=== PATIENT | female | born 1985 | race Caucasian/White ===

== ENCOUNTER 2020-01-09 08:12 | Emergency (ER) | payer OTHER, SELFPAY ==
[2020-01-09 08:17] VITALS: BP 115/80; PULSE 105; RESP 16; TEMP 36.8; O2SAT 100; BMI 19.5
--- NOTE | 2020-01-09 08:31 | CT_ITS ---
WS: [id number] CT NECK TECHNIQUE: Noncontrast CT of the neck with coronal and sagittal reformatted images. CLINICAL INFORMATION: neck pain COMPARISON: None. DLP: 620.[address] scans at [facility] use at least one of these dose optimization techniques: automat ed exposure control; mA and/or kV adjustment per patient size (includes targeted exams where dose is matched to clinical indication); or iterative reconstruction. FINDINGS: Parotid glands are normal. Normal submandibular glands. No cervical lymphadenopathy. Normal posterior nasopharynx. Normal parapharyngeal fat. No cervical lymphadenopathy. Mastoid air cells are well aera pauline. Paranasal sinuses are well aerated. Lung apices are well aerated. Paranasal sinuses and mastoid air cells are well aerated. Normal visual ized cervical spine. Normal craniocervical junction. No acute neck findings. CT/CT neck wo con [id number] IMPRESSION: 1. No evidence of supraglottic or glottic mass. Subglottic airway is patent. 2. Normal salivary glands. 3. No cervical lymphadenopathy. 4. No acute neck findings.
--- NOTE | 2020-01-09 08:33 | W.ED.GENADLT ---
HPI - General Adult General: Chief complaint: Airway/Esophagus Foreign Body Stated complaint: FEELS LIKE SOMETHING IS STUCK IN THROAT Time Seen by Provider: 01/09/20 08:19 History of Present Illness: HPI narrative: Patient states that she feels like she has something stuck in her throat been going for approximately 2 weeks. She was seen at [facility] walk-in clinic to give her lidocaine which she was able get filled yesterday and it did not help with the symptoms she is having. She denies any drooling she is able swallow food and eat but she complains about increasing pain down the lower part of her throat. Denies any reflux heartburn. Denies any fever chills. MD complaint: Throat pain Onset (ago): week(s) Radiation: non-radiation Severity scale (1-10): 5 Quality: burning, aching and constant Pain Consistency: constant Relieving factors: none Associated symptoms: Reports no associated symptoms; Deny chest pain, dyspnea, headache(s), nausea, rash or vomiting Treatments prior to arrival: other (Lidocaine viscus) Review of Systems Const: Denies: fever(s), chills or body aches Eyes: Denies: change in vision or blurry vision ENMT: Reports: throat pain and odynophagia; Denies: uvular edema, enlarged tonsils, hoarseness, swelling of lips/tongue, nasal discharge or nasal congestion Card: Denies: chest pain or dyspnea on exertion Resp: Denies: dyspnea, productive cough or non-productive cough GI: Denies: abdominal pain, nausea, vomiting or heartburn Musc: Denies: extremity pain Skin/Breast: Denies: rash Neuro: Denies: headache(s) Psych: Denies: anxiety or depression Giancarlo/Lymph: Denies: easy bruising PFSH ED PFSH: Medical History (Updated 08/10/19 @ 16:19 by Leo Abernathy MD) Migraine Without aura Surgical History (Updated 08/10/19 @ 15:39 by Leo Abernathy MD) History of bilateral tubal ligation (04/09/13) . Performed by Dr. Lan at [facility] [place]. History of laparoscopic cholecystectomy (~08/2010) History of laparoscopy (03/12/12) Dx: Pelvic pain. Performed by Dr. Latif at [facility] History of LAVH (12/10/14) With bilateral salpingectomy. Dx: Chronic pelvic pain, Irregular bleeding, Dysmenorrhea. Path negative. History of tonsillectomy and adenoidectomy (~2003) Age 18 Family History (Updated 08/07/19 @ 14:31 by Tyra Pérez LPN) Grandfather Heart disease Social History Smoking and tobacco status: never smoked Alcohol intake: current Alcohol intake frequency: few times a month Physical Exam Const: COMMON NORMALS: no acute distress, average body habitus and patient oriented x3 HENMT: COMMON NORMALS: normocephalic HEAD & SCALP: normal to inspection and normocephalic FACE & SINUS: normal facial exam THROAT: posterior oropharynx abnormal erythema and other (Thyroid feels normal); no uvular edema Eye: COMMON NORMALS: conjunctivae normal GENERAL EYE: appearance normal, both eyes and all related structures CONJUNCTIVA: Yes conjunctivae normal Neck/C-Spine: COMMON NORMALS: no JVD Chest: COMMONS NORMALS: normal inspection of the chest Resp: COMMON NORMALS: normal respiratory effort and clear to auscultation bilaterally AUSCULTATION: clear to auscultation bilaterally Cardio: COMMON NORMALS: no JVD, regular rate and regular rhythm RATE: regular rate RHYTHM: regular rhythm GI: COMMON NORMALS: Normal to inspection, nondistended, normoactive bowel sounds present Extremity: COMMON NORMALS: normal to inspection and full ROM Neuro: COMMON NORMALS: patient oriented x3 Course Vital Signs: Vital signs: Vital Signs Temperature 98.2 F 01/09/20 08:17 Pulse Rate 105 H 01/09/20 08:17 Respiratory Rate 16 01/09/20 08:17 Blood Pressure 115/80 01/09/20 08:17 Pulse Oximetry 100 01/09/20 08:17 Discharge Plan Discharge Prescriptions: No Action Aimovig Autoinjector 140 mg/mL auto-injector SUBCUT PRNRF: 0 topiramate 25 mg capsule, sprinkle 100 mg PO DAILY RF: 0 Coding Level of Care Code ED Religious Education Coordinator for Curlyg José Miguel
--- NOTE | 2020-01-09 08:34 | PC.NURSE ---
Assessment Patient states she began feeling as if something is lodged in her throat approximately 2 weeks ago. Seen PCP Sunday due to the discomfort, was prescribed her lidocaine viscous. Discomfort turned into pain 2 days ago and PCP instructed patient to be further evaluated in ED considering medication was not alleviating pain. Patient denies any symptoms or difficulty handling secretions or breathing.
[2020-01-09] MEDS: lidocaine 2% viscous 15 ML, aluminum-mag hydrox-simethicon 30 ML, sucralfate oral liq 1 GM PO (08:41)
[2020-01-09 09:10] LABS: Basophils % 0.7 %; Eosinophils # 0.1 10^3/uL (0.0-0.8); Eosinophils % 2.8 %; Lymphocytes # 1.6 10^3/uL (0.8-4.8); Lymphocytes % 37.8 %; Mean Corpuscular HGB Conc 33.3 g/dL (30.0-36.0); Mean Corpuscular Hemoglobin 29.9 pg (28.0-34.0); Mean Corpuscular Volume 89.8 fL (81-99); Mean Platelet Volume 10.6 fL (7.4-10.4); Monocytes # 0.4 10^3/uL (0.2-0.9); Monocytes % 8.7 %; Neutrophils % 49.8 %; Nucleated Red Blood Cells % 0 %; Platelet Count 232 10^3/cmm (130-400); Red Blood Count 5.01 10^6/uL (4.1-5.3); Red Cell Distribution Width 12.1 % (12.1-15.1); White Blood Count 4.2 10^3/uL (4.0-10.0)
[2020-01-09 09:35] LABS: Blood Urea Nitrogen 10 mg/dL (6-20); Carbon Dioxide 24 mmol/L (22-29); Chloride 105 mmol/L (98-107); Glomerular Filtration Rate 83.1 mL/min (90-130); Glucose 87 mg/dL (65-115); Osmolality Calculated 285 mOsm/kg (285-295); Sodium 140 mmol/L (136-145); Thyroid Stimulating Hormone 1.29 uIU/mL (0.27-4.20)
[2020-01-09 10:22] VITALS: BP 111/82; PULSE 85; RESP 16; O2SAT 99
== END 2020-01-09 10:22 | disposition home or self-care (01) ==
PROVIDERS: Emergency Provider Nurse Practitioner Family; PCP Nurse Practitioner Family
DX: R09.89 Other specified symptoms and signs involving the circulatory and respiratory systems (principal)
CPT/HCPCS: 12345; 36415; 70490; 80048; 84443; 85025; 99282; 99283

== ENCOUNTER 2020-08-11 12:15 | Emergency (ER) | payer BC, SELFPAY ==
[2020-08-11 12:34] VITALS: BP 120/79; PULSE 110; RESP 18; TEMP 36.6; O2SAT 100; BMI 20.9
--- NOTE | 2020-08-11 13:03 | ECG_ITS ---
[facility] Test Date: 2020-08-11 Pat Name: Rolanda Treviño Department: Room: Gender: Female It Account Manager: : 1985 Requested By: Rodolfo Altman Order Number: [id number] Carlita MD: Alondra Wright M.D. Measurements Intervals [place] Rate: 100 P: 75 UT: 148 QRS: 81 QRSD: 82 T: 38 QT: 336 QTc: 434 Interpretive Statements SINUS TACHYCARDIA ABNORMAL RHYTHM ECG No previous ECG available for comparison Electronically Signed On 08-11-2020 20:56:19 SCUBA INSTRUCTOR by Alondra Wright M.D. [id number]
[2020-08-11 13:21] VITALS: PULSE 112; RESP 17; O2SAT 100
[2020-08-11] MEDS: sodium chloride 0.9% 1,000 ML 999 ML IV (13:25)
[2020-08-11 13:34] LABS: Basophils % 0.3 %; Eosinophils % 0.6 %; Hematocrit 43.5 % (37.0-47.0); Hemoglobin 13.9 g/dL (11.5-15.3); Lymphocytes # 1.1 10^3/uL (0.8-4.8); Lymphocytes % 17.1 %; Mean Corpuscular Hemoglobin 29.4 pg (28.0-34.0); Mean Platelet Volume 10.9 fL (7.4-10.4); Monocytes # 0.5 10^3/uL (0.2-0.9); Monocytes % 8.4 %; Neutrophils # 4.72 10^3/uL (1.8-7.7); Neutrophils % 73.4 %; Nucleated Red Blood Cells % 0 %; Platelet Count 222 10^3/cmm (130-400); Red Blood Count 4.73 10^6/uL (4.1-5.3); Red Cell Distribution Width 12.3 % (12.1-15.1); White Blood Count 6.4 10^3/uL (4.0-10.0)
--- NOTE | 2020-08-11 13:39 | PC.PHAR ---
pt states sunday she started taking 800mg bid of cbd gummies-pt states she forgot them at home today so stopped and picked up some different ones-pt states she got 300mg gummies-pt states she only took one 300mg gummy today and feels weird
--- NOTE | 2020-08-11 13:41 | PC.NURSE ---
EKG done at 1319 and shown to ER doctor
[2020-08-11 13:57] VITALS: PULSE 95; RESP 19; O2SAT 100
--- NOTE | 2020-08-11 14:11 | W.ED.AMS ---
HPI - Altered Mental Status General: Chief Complaint: Altered Mental Status Stated Complaint: LOSING MEMORY, SHAKING Time Seen by Provider: 08/11/20 12:54 History of Present Illness: HPI narrative: the patient is a 34 year old female with PMH migraine headaches taking CBD gummies who comes to the ED saysing she feels weird, having memory loss and blurred vision which started 1 hour after she took a new brand of CBD gummy. She ran out of her gummies and tried a new brand and 1 hour after she ate it she began to feel weird. No previous other medical history. complaint: altered mental status Onset (ago): hour(s) (1) Severity: moderate Consistency of symptoms: Unknown (improving some) Associated symptoms: Reports no associated symptoms; Deny depression Review of Systems General: Reports: 10 or more systems reviewed and unremarkable except in HPI and below Const: Denies: fatigue Eyes: Denies: change in vision, blurry vision or eye redness ENMT: Denies: throat pain, swelling of lips/tongue, ear or mastoid pain or nasal congestion Card: Denies: chest pain, palpitations, irregular heart rhythm, edema, dyspnea on exertion or orthopnea Resp: Denies: dyspnea, productive cough or non-productive cough GI: Denies: abdominal pain, diarrhea or GI cramping : Denies: flank pain, difficulty voiding, urinary frequency or urinary urgency Musc: Denies: neck pain, back pain, extremity pain, joint pain, joint redness, limited range of motion or muscle weakness Skin/Breast: Denies: rash, pruritus, erythema, skin pain or skin tenderness Neuro: Reports: lack of coordination; Denies: headache(s), numbness in extremities, weakness in extremities, sensory changes, difficulty walking, dizziness, confusion or Slurred speech present Psych: Denies: anxiety or depression Endo: Denies: polyuria All/Imm: Denies: urticaria, throat swelling or tongue swelling PFSH ED PFSH: Medical History (Updated 08/11/20 @ 16:04 by Rodolfo Altman MD) Migraine Without aura Surgical History (Updated 08/10/19 @ 15:39 by Leo Abernathy MD) History of bilateral tubal ligation (04/09/13) . Performed by Dr. Lan at [facility] [place]. History of laparoscopic cholecystectomy (~08/2010) History of laparoscopy (03/12/12) Dx: Pelvic pain. Performed by Dr. Latif at [facility] History of LAVH (12/10/14) With bilateral salpingectomy. Dx: Chronic pelvic pain, Irregular bleeding, Dysmenorrhea. Path negative. History of tonsillectomy and adenoidectomy (~2003) Age 18 Family History (Updated 08/07/19 @ 14:31 by Tyra Pérez LPN) Grandfather Heart disease Social History Smoking and tobacco status: never smoked Alcohol intake: current Alcohol intake frequency: few times a month Physical Exam Const: COMMON NORMALS: no acute distress, average body habitus, patient oriented x3, no limitations, healthy appearing, alert and well nourished GENERAL APPEARANCE: cooperative, comfortable, well kempt and well developed ORIENTATION/CONSCIOUSNESS: Yes awake, Yes oriented to person, Yes oriented to place and Yes oriented to time HENMT: COMMON NORMALS: normocephalic, external ears normal and Normal external nose present HEAD & SCALP: normal to inspection and normocephalic NOSE: Normal external nose present EXTERNAL EAR: Yes external ears normal MOUTH: Normal oral and palatal mucosa present THROAT: posterior oropharynx normal Eye: COMMON NORMALS: Equal, round and reactive pupils present and EOMs intact bilaterally GENERAL EYE: appearance normal, both eyes and all related structures PUPIL: Yes Equal, round and reactive pupils present Neck/C-Spine: COMMON NORMALS: full ROM, no lymphadenopathy, no meningeal signs and no JVD GENERAL: Yes normal visual inspection Lymph: LYMPHATIC: no lymphadenopathy noted Chest: COMMONS NORMALS: normal inspection of the chest and normal palpation of entire chest wall Resp: COMMON NORMALS: normal respiratory effort, No retractions, No use of accessory muscles, clear to auscultation bilaterally and percussion normal EFFORT & INSPECTION: Yes able to speak in complete sentences AUSCULTATION: clear to auscultation bilaterally PERCUSSION: percussion normal Cardio: COMMON NORMALS: no JVD, regular rate, regular rhythm, S1 normal heart sound present, S2 normal heart sound present and Peripheral pulses 2+ throughout RATE: regular rate RHYTHM: regular rhythm HEART SOUNDS: S1 normal heart sound present and S2 normal heart sound present PERIPHERAL PULSES: Peripheral pulses 2+ throughout GI: COMMON NORMALS: Normal to inspection, nondistended, normoactive bowel sounds present, Soft to palpation, non-tender and no masses INSPECTION: Yes normal to inspection PALPATION: Yes Soft to palpation : COMMON NORMALS: Yes no CVA tenderness BLADDER/KIDNEY EXAM: Yes no CVA tenderness Back/Pelvis: COMMON NORMALS: no CVA tenderness, thoracic and lumbar spine normal to inspection, no thoracic nor lumbar tenderness and thoraco-lumbar ROM normal Extremity: COMMON NORMALS: normal to inspection, full ROM, capillary refill normal, no joint enlargement and no pedal edema GENERAL: Yes normal exam except as noted Neuro: COMMON NORMALS: patient oriented x3, CN's II-XII intact bilaterally, moves all extremities, no focal motor deficits, no sensory deficits noted and gait normal SENSORIUM/ORIENTATION: Yes alert, Yes oriented to person, Yes oriented to place and Yes oriented to time MENINGEAL SIGNS: Yes no meningeal signs Psych: COMMON NORMALS: mental status grossly normal, Normal thought process present, cooperative, normal affect and speech normal APPEARANCE: Yes well kempt ATTITUDE: Yes calm SPEECH: Yes normal speech THOUGHT PROCESS: Normal thought process present Skin: COMMON NORMALS: no rashes or lesions noted GENERAL SKIN EXAM: no rashes or lesions noted Course Vital Signs: Vital signs: Vital Signs Temperature 97.9 F 08/11/20 12:34 Pulse Rate 90 08/11/20 15:25 Respiratory Rate 18 08/11/20 15:25 Blood Pressure 120/79 08/11/20 12:34 Pulse Oximetry 98 08/11/20 15:25 MDM - Altered Mental Status MDM Narrative: Medical decision making narrative: She is improved. UDS + THC. Likely THC gummies. Her symptoms resolved with IV fluids and time. OK to d/c home. Throw away gummies. ER with worsening symptoms. Lab Data: Labs: Lab Results 08/11/20 08/11/20 08/11/20 Range/Units 12:23 12:23 13:17 WBC 6.4 (4.0-10.0) 10^3/ uL RBC 4.73 (4.1-5.3) 10^6/u L Hgb 13.9 (11.5-15.3) g/dL Hct 43.5 (37.0-47.0) % MCV 92.0 (81-99) fL MCH 29.4 (28.0-34.0) pg MCHC 32.0 (30.0-36.0) g/dL RDW 12.3 (12.1-15.1) % Plt Count 222 (130-400) 10^3/c mm MPV 10.9 H (7.4-10.4) fL Neut % (Auto) 73.4 % Lymph % (Auto) 17.1 % [place] % (Auto) 8.4 % Eos % (Auto) 0.6 % Baso % (Auto) 0.3 % Neut # (Auto) 4.72 (1.8-7.7) 10^3/u L Lymph # (Auto) 1.1 (0.8-4.8) 10^3/u L [place] # (Auto) 0.5 (0.2-0.9) 10^3/u L Eos # (Auto) 0.0 (0.0-0.8) 10^3/u L Baso # (Auto) 0.0 (0.0-0.1) 10^3/u L Nucleated RBC % (a uto) 0 % Nucleated RBCs # 0.0 /100WBC Sodium (136-145) mmol/L Potassium (3.5-5.1) mmol/L Chloride (98-107) mmol/L Carbon Dioxide (22-29) mmol/L Anion Gap (5-19) BUN (6-20) mg/dL Creatinine (0.5-0.9) mg/dL GFR Calculation (90-130) mL/min Glucose (65-115) mg/dL Calculated Osmolal ity (285-295) mOsm/k g Calcium (8.5-10.5) mg/dL Total Bilirubin (0.15-1.2) mg/dL AST (0-32) U/L ALT (0-33) U/L Alkaline Phosphata se (35-105) IU/L Total Protein (6.6-8.7) g/dL Albumin (3.5-5.2) g/dL Globulin (1.3-4.6) g/dL Urine Color Yellow (Yellow) Urine Appearance Clear (CLEAR) Urine pH 7 (5-7) Ur Specific Gravit y 1.005 (1.005-1.030) Urine Protein Neg (Negative) Urine Glucose (UA) Norm (Normal) Urine Ketones Negative (Negative) Urine Blood Neg (Negative) Urine Nitrate Negative (Negative) Urine Bilirubin Neg (Negative) Urine Urobilinogen Norm (Negative) mg/dL Ur Leukocyte Halina ase Negative (Negative) Urine Opiates Scre en Negative (Negative) ng/mL Ur Barbiturates Sc reen Negative (Negative) ng/mL Ur Phencyclidine S crn Negative (Negative) ng/mL Ur Amphetamines Sc reen Negative (Negative) ng/mL U Benzodiazepines Scrn Negative (Negative) ng/mL Urine Cocaine Scre en Negative (Negative) ng/mL U Marijuana (THC) Screen Positive H (Negative) ng/mL Ethyl Alcohol (0-10) mg/dL 08/11/20 Range/Units 13:17 WBC (4.0-10.0) 10^3/ uL RBC (4.1-5.3) 10^6/u L Hgb (11.5-15.3) g/dL Hct (37.0-47.0) % MCV (81-99) fL MCH (28.0-34.0) pg MCHC (30.0-36.0) g/dL RDW (12.1-15.1) % Plt Count (130-400) 10^3/c mm MPV (7.4-10.4) fL Neut % (Auto) % Lymph % (Auto) % [place] % (Auto) % Eos % (Auto) % Baso % (Auto) % Neut # (Auto) (1.8-7.7) 10^3/u L Lymph # (Auto) (0.8-4.8) 10^3/u L [place] # (Auto) (0.2-0.9) 10^3/u L Eos # (Auto) (0.0-0.8) 10^3/u L Baso # (Auto) (0.0-0.1) 10^3/u L Nucleated RBC % (a uto) % Nucleated RBCs # /100WBC Sodium 140 (136-145) mmol/L Potassium 3.9 (3.5-5.1) mmol/L Chloride 105 (98-107) mmol/L Carbon Dioxide 25 (22-29) mmol/L Anion Gap 13.9 (5-19) BUN 10 (6-20) mg/dL Creatinine 0.7 (0.5-0.9) mg/dL GFR Calculation 97.0 (90-130) mL/min Glucose 81 (65-115) mg/dL Calculated Osmolal ity 288 (285-295) mOsm/k g Calcium 9.7 (8.5-10.5) mg/dL Total Bilirubin 0.3 (0.15-1.2) mg/dL AST 19 (0-32) U/L ALT 12 (0-33) U/L Alkaline Phosphata se 71 (35-105) IU/L Total Protein 7.1 (6.6-8.7) g/dL Albumin 4.4 (3.5-5.2) g/dL Globulin 2.7 (1.3-4.6) g/dL Urine Color (Yellow) Urine Appearance (CLEAR) Urine pH (5-7) Ur Specific Gravit y (1.005-1.030) Urine Protein (Negative) Urine Glucose (UA) (Normal) Urine Ketones (Negative) Urine Blood (Negative) Urine Nitrate (Negative) Urine Bilirubin (Negative) Urine Urobilinogen (Negative) mg/dL Ur Leukocyte Halina ase (Negative) Urine Opiates Scre en (Negative) ng/mL Ur Barbiturates Sc reen (Negative) ng/mL Ur Phencyclidine S crn (Negative) ng/mL Ur Amphetamines Sc reen (Negative) ng/mL U Benzodiazepines Scrn (Negative) ng/mL Urine Cocaine Scre en (Negative) ng/mL U Marijuana (THC) Screen (Negative) ng/mL Ethyl Alcohol < 10 (0-10) mg/dL Discharge Plan Discharge Patient Disposition: Home Clinical Impression: Altered mental status Condition: Stable Prescriptions: Discontinued Cbd Gummies See Rx Instructions .ROUTE .COMPLEX RF: 0 No Action Aimovig Autoinjector 140 mg/mL auto-injector 140 mg SUBCUT Q30D RF: 0 Tylenol Extra Strength 500 mg Tablet 1,000 mg PO PRN RF: 0 ibuprofen 200 mg Tablet 800 mg PO PRN RF: 0 Discharge Orders: Discharge ED (Routine); Ordered 08/11/20 Ordered By: Rodolfo Altman Referrals: Mirlande Kaur FNP [Primary Care Provider] - Discharge Diet: Advance as tolerated Discharge Activity: Resume usual activity Patient Instructions: Opioid Safety Activity Restrictions/Additional Instructions: Please throw away gumies. Return to ED with worsening symptoms. Coding Level of Care Code ED Fold Skiver for Tomas Fwtacos Exam Comprehensive
[2020-08-11 14:13] LABS: Add Urine Microscopic? NO
[2020-08-11 14:30] VITALS: PULSE 95; RESP 18; O2SAT 100
[2020-08-11 14:39] LABS: Alanine Aminotransferase 12 U/L (0-33); Albumin Level 4.4 g/dL (3.5-5.2); Alcohol Level < 10 mg/dL (0-10); Alkaline Phosphatase 71 IU/L (35-105); Aspartate Amino Transferase 19 U/L (0-32); Blood Urea Nitrogen 10 mg/dL (6-20); Calcium 9.7 mg/dL (8.5-10.5); Carbon Dioxide 25 mmol/L (22-29); Chloride 105 mmol/L (98-107); Creatinine Clr Calc Pharmacy 111.6033; Globulin 2.7 g/dL (1.3-4.6); Glucose 81 mg/dL (65-115); Osmolality Calculated 288 mOsm/kg (285-295); Sodium 140 mmol/L (136-145); Total Bilirubin 0.3 mg/dL (0.15-1.2); Total Protein 7.1 g/dL (6.6-8.7)
[2020-08-11 14:40] LABS: Anion Gap 13.9 (5-19); Potassium 3.9 mmol/L (3.5-5.1)
[2020-08-11 14:42] LABS: Bilirubin Urine Neg (Negative); Blood Urine Neg (Negative); Glucose Urine UA Norm (Normal); Ketones Urine Negative (Negative); Leukocyte Esterase Urine Negative (Negative); Nitrate Urine Negative (Negative); Protein Urine Neg (Negative); Specific Gravity, Urine 1.005 (1.005-1.030); Urine Appearance Clear (CLEAR); Urine Color Yellow (Yellow); Urobilinogen Urine Norm (Negative); pH Urine 7 (5-7)
[2020-08-11 15:25] VITALS: PULSE 90; RESP 18; O2SAT 98
[2020-08-11 15:58] LABS: Amphetamines Screen Urine Negative (Negative); Barbiturates Screen Urine Negative (Negative); Benzodiazepines Screen Urine Negative (Negative); Cocaine Screen Urine Negative (Negative); Opiate Screen Urine Negative (Negative); PCP Screen Urine Negative (Negative); THC Screen Urine Positive (Negative)
[2020-08-11 16:18] VITALS: PULSE 103; RESP 18; O2SAT 100
== END 2020-08-11 16:18 | disposition home or self-care (01) ==
PROVIDERS: Emergency Provider Family Medicine; PCP Nurse Practitioner Family
DX: R41.82 Altered mental status, unspecified (principal)
CPT/HCPCS: 80053; 80306; 80307; 81003; 85025; 93005; 96360; 99283; J7030

== ENCOUNTER 2021-06-27 22:37 | Emergency (ER) | payer BC, SELFPAY ==
[2021-06-27 22:49] VITALS: BP 113/77; PULSE 86; RESP 16; TEMP 36.6; O2SAT 99; BMI 21.9
--- NOTE | 2021-06-27 23:08 | ED_ITS ---
HPI - Allergic Reaction General: Chief complaint: Allergic Reaction Stated complaint: Allergice Reaction\Hives Time Seen by Provider: 06/27/21 22:52 Source: patient Mode of arrival: ambulatory Limitations: no limitations History of Present Illness: HPI narrative: 35-year-old female who states that she takes a monthly injection for migraines started a new on gave her a dose on and states that today started having a rash to her trunk and arms. She is unsure if it was from the shot but she states Thing she has done differently but it was 4 days ago. States that her rash is very pruritic in nature took Benadryl at home and it has improved but still has a rash denies any shortness of breath denies any throat swelling denies any vomiting or diarrhea. Associated symptoms: Deny abdominal pain, nausea or vomiting Review of Systems Const: Denies: fever(s), chills, body aches or change in appetite Eyes: Denies: blurry vision or eye discomfort ENMT: Denies: throat pain or dental pain Card: Denies: chest pain Resp: Denies: dyspnea GI: Denies: abdominal pain, nausea, vomiting or diarrhea : Denies: dysuria Musc: Denies: neck pain or back pain Skin/Breast: Denies: rash Neuro: Denies: headache(s) Psych: Denies: depression Giancarlo/Lymph: Denies: easy bruising All/Imm: Denies: urticaria PFSH ED 2 PFSH: Medical History Migraine Without aura Surgical History History of bilateral tubal [place] (04/09/13) . [place] [facility] [place] History of laparoscopic cholecystectomy (~08/2010) History of laparoscopy (03/12/12) Dx: Pelvic pain. Performed by Dr. Latif at [facility] History of LAVH (12/10/14) With bilateral salpingectomy. Dx: Chronic pelvic pain, Irregular bleeding, D ysmenorrhea. Path negative. History of tonsillectomy and adenoidectomy (~2003) Age 18 Family History Grandfather Heart disease Social History Smoking and tobacco status: never smoked Second hand smoke exposure: No Alcohol intake: current Alcohol intake frequency: few times a month Desire information about alcohol rehabilitation?: No Desire information about substance/drug rehabilitation?: No Physical Exam Const: COMMON NORMALS: no acute distress, patient oriented x3 and healthy appearing HENMT: COMMON NORMALS: normocephalic and atraumatic HEAD & SCALP: normocephalic and atraumatic Eye: COMMON NORMALS: Equal, round and reactive pupils present and EOMs intact bilaterally PUPIL: Yes Equal, round and reactive pupils present Neck/C-Spine: COMMON NORMALS: full ROM and supple Chest: COMMONS NORMALS: normal inspection of the chest and normal palpation of entire chest wall Resp: COMMON NORMALS: normal respiratory effort, No retractions, No use of accessory muscles and clear to auscultation bilaterally AUSCULTATION: clear to auscultation bilaterally Cardio: COMMON NORMALS: regular rate, regular rhythm and No murmurs present (Cardio) RATE: regular rate RHYTHM: regular rhythm GI: COMMON NORMALS: Normal to inspection, nondistended, normoactive bowel sounds present, Soft to palpation, non-tender and no masses PALPATION: Yes Soft to palpation Extremity: COMMON NORMALS: normal to inspection and full ROM Neuro: COMMON NORMALS: patient oriented x3, moves all extremities and no focal motor deficits Psych: COMMON NORMALS: mental status grossly normal, Normal thought process present and cooperative THOUGHT PROCESS: Normal thought process present Skin: COMMON NORMALS: no wounds NARRATIVE SKIN EXAM: Hives to trunk and arms Course Vital Signs: Vital signs: Vital Signs Temperature 97.9 F 06/27/21 22:49 Pulse Rate 86 06/27/21 22:49 Respiratory Rate 16 06/27/21 22:49 Blood Pressure 113/77 06/27/21 22:49 Pulse Oximetry 99 06/27/21 22:49 MDM - Allergic Reaction MDM Narrative: Medical decision making narrative: Patient presents with urticaria along with allergic reaction much improved here with IV meds. We will place her on 5 days of steroids take Benadryl Pepcid at home as well she has no signs of airway involvement she is to follow-up PCP and return if worsening. Discharge Plan Discharge Patient Disposition: Home Clinical Impression: Urticaria, Allergic reaction Condition: Stable Prescriptions: New prednisone 50 mg tablet 50 mg PO DAILY Qty: 5 RF: 0 ondansetron 4 mg tablet,disintegrating 4 mg PO Q6H PRN (Reason: nausea and vomiting) Qty: 14 RF: 0 No Action Aimovig Autoinjector 140 mg/mL auto-injector 140 mg SUBCUT Q30D RF: 0 Tylenol Extra Strength 500 mg Tablet 1,000 mg PO PRN RF: 0 ibuprofen 200 mg Tablet 800 mg PO PRN RF: 0 Discharge Orders: Discharge ED (Routine); Ordered 06/28/21 Ordered By: Miguel Smith Referrals: Mirlande Kaur FNP [Primary Care Provider] - Discharge Diet: Advance as tolerated Discharge Activity: Resume usual activity Patient Instructions: Urticaria (ED) Coding Level of Care Code ED Food Tester for Tomas Fwd Exam Comprehensive
[2021-06-27] MEDS: diphenhydrAMINE 50 mg/mL SDV 1mL IVP (23:10)
[2021-06-27] MEDS: famotidine 20 mg/2 mL INJ 40 MG IVP (23:10)
[2021-06-28] MEDS: ondansetron 2 mg/ML SDV 2 mL 4 MG IVP (00:06)
--- NOTE | 2021-06-28 00:07 | PC.NURSE ---
reports nausea at this time, orders received and medicated per order.
== END 2021-06-28 00:36 | disposition home or self-care (01) ==
PROVIDERS: Emergency Provider Emergency Medicine; PCP Nurse Practitioner Family
DX: L50.9 Urticaria, unspecified (principal); T78.40XA Allergy, unspecified, initial encounter
CPT/HCPCS: 96374; 96375; 99283; J1200; J2405; J2930; J3490

== ENCOUNTER 2022-01-25 07:15 | Outpatient (CLI) | payer BC, SELFPAY ==
--- NOTE | 2022-01-25 07:32 | MR_ITS ---
WS: [id number] MRI CERVICAL SPINE NONCONTRAST TECHNIQUE: Sagittal T1, T2 and STIR imaging. Axial T2, gradient, and fiesta imaging. CLINICAL INFORMATION: REPTITIVE STRAIN INJURY OF CSPINE COMPARISON: CT neck January 09, 2020 FINDINGS: Straightening of the normal cervical lordosis. Cord signal is normal. No central canal stenosis. C2-C3: Normal. C3-C4: Normal. C4-C5: Mild facet arthropathy. Spinal canal and foramen are patent. No significant disc bulging. C5-C6: Minimal disc bulging. Spinal canal and foramen are patent. Mild facet arthropathy. C6-C7: Normal. C7-T1: Normal. Visualized brain stem structures: Normal. Prevertebral soft tissues: Normal. MR/MR cervical spin wo con* [id number] IMPRESSION: Unremarkable cervical spine MRI.
== END 2022-01-25 07:16 | disposition home or self-care (01) ==
PROVIDERS: PCP Nurse Practitioner Family; Visit Provider Nurse Practitioner Family
DX: S16.1XXA Strain of muscle, fascia and tendon at neck level, initial encounter (principal); X58.XXXA Exposure to other specified factors, initial encounter
CPT/HCPCS: 72141

== ENCOUNTER 2022-02-19 16:16 | Emergency (ER) | payer BC, SELFPAY ==
[2022-02-19 16:22] VITALS: BP 127/76; PULSE 106; RESP 16; TEMP 36.6; O2SAT 99; BMI 24.2
--- NOTE | 2022-02-19 16:50 | W.ED.ABDPA2 ---
Documented by User: Yefri Castillo DO 02/26/22 10:35 HPI - Abdominal Pain General: Chief Complaint: Abdominal Pain Stated Complaint: upper abd pain v/n/d Time Seen by Provider: 02/19/22 16:42 History of Present Illness: 36-year-old female presents with epigastric pain. Patient reports for about a week she has had diarrhea and a couple days ago she started having some epigastric pain, nausea and vomiting. She reports it gets worse after she eats. Patient states that yesterday she went to urgent care and they gave her Zantac and Prilosec however it has not helped. Patient reports that she does not have her gallbladder. Patient denies any fevers chills or known sick contacts Associated Symptoms: Reports diarrhea, nausea and vomiting; Denies chills and fever(s) Review of Systems Const: Reports: malaise; Denies: fever(s) or chills Eyes: Denies: change in vision or blurry vision ENMT: Denies: throat pain or ear or mastoid pain Resp: Denies: dyspnea, productive cough or wheezing GI: Reports: abdominal pain, nausea, vomiting and diarrhea : Denies: flank pain or difficulty voiding Musc: Denies: neck pain or back pain Skin/Breast: Denies: rash or pruritus Neuro: Denies: headache(s) Psych: Denies: anxiety or depression PFSH ED PFSH: Medical History Migraine Without aura Surgical History History of bilateral tubal ligation (04/09/13) . Performed by Dr. Lan at [facility]. History of laparoscopic cholecystectomy (~08/2010) History of laparoscopy (03/12/12) Dx: Pelvic pain. Performed by Dr. Latif at [facility] History of LAVH (12/10/14) With bilateral salpingectomy. Dx: Chronic pelvic pain, Irregular bleeding, Dysmenorrhea. Path negative. History of tonsillectomy and adenoidectomy (~2003) Age 18 Family History Grandfather Heart disease Social History Smoking and tobacco status: never smoked Second hand smoke exposure: No Alcohol intake: current Alcohol intake frequency: few times a month Desire information about alcohol rehabilitation?: No Desire information about substance/drug rehabilitation?: No Physical Exam Const: COMMON NORMALS: no acute distress, average body habitus and patient oriented x3 HENMT: COMMON NORMALS: normocephalic, hearing grossly normal bilaterally and moist oral mucous membranes HEAD & SCALP: normocephalic Resp: COMMON NORMALS: normal respiratory effort, No use of accessory muscles and clear to auscultation bilaterally EFFORT & INSPECTION: Yes able to speak in complete sentences AUSCULTATION: clear to auscultation bilaterally Cardio: COMMON NORMALS: regular rate and regular rhythm RATE: regular rate RHYTHM: regular rhythm GI: COMMON NORMALS: Soft to palpation PALPATION: Yes Soft to palpation and Yes Tenderness to palpation present (GI) Details: other (Epigastric) Extremity: COMMON NORMALS: normal to inspection, full ROM and capillary refill normal Neuro: COMMON NORMALS: patient oriented x3, CN's II-XII intact bilaterally, moves all extremities and no focal motor deficits Course Vital Signs: Vital signs: Vital Signs Temperature 97.8 F 02/19/22 16:22 Pulse Rate 106 H 02/19/22 16:22 Respiratory Rate 16 02/19/22 18:28 Blood Pressure 127/76 02/19/22 16:22 Pulse Oximetry 96 02/19/22 18:28 Oxygen Delivery Me thod 02/19/22 16:22 MDM - Abdominal Pain Lab Data : 02/19/22 17:00 02/19/22 17:00 Labs/Radiology: Radiology Impressions Abdomen/Pelvis CT 02/19/22 18:21 IMPRESSION: 1. Prominent fluid in the small bowel without dilation suggestive of an enteritis. 2. Left ovary 15 mm cyst, likely follicular. 3. Cholecystectomy. Laboratory Results WBC 8.2 10^3/uL (4.0-10.0) 02/19/22 17:00 RBC 4.82 10^6/uL (4.1-5.3) 02/19/22 17:00 Hgb 14.1 g/dL (11.5-15.3) 02/19/22 17:00 Hct 42.7 % (37.0-47.0) 02/19/22 17:00 MCV 88.6 fl (81-99) 02/19/22 17:00 MCH 29.3 pg (28.0-34.0) 02/19/22 17:00 MCHC 33.0 g/dL (30.0-36.0) 02/19/22 17:00 RDW 11.8 % (12.1-15.1) L 02/19/22 17:00 Plt Count 270 10^3/cmm (130-400) 02/19/22 17:00 MPV 10.6 fL (7.4-10.4) H 02/19/22 17:00 Neut % (Auto) 45.2 % 02/19/22 17:00 Lymph % (Auto) 21.4 % 02/19/22 17:00 [place] % (Auto) 5.3 % 02/19/22 17:00 Eos % (Auto) 27.3 % 02/19/22 17:00 Baso % (Auto) 0.6 % 02/19/22 17:00 Neut # (Auto) 3.70 10^3/uL (1.8-7.7) 02/19/22 17:00 Lymph # (Auto) 1.8 10^3/uL (0.8-4.8) 02/19/22 17:00 [place] # (Auto) 0.4 10^3/uL (0.2-0.9) 02/19/22 17:00 Eos # (Auto) 2.2 10^3/uL (0.0-0.8) H 02/19/22 17:00 Baso # (Auto) 0.1 10^3/uL (0.0-0.1) 02/19/22 17:00 Nucleated RBC % (auto) 0 % 02/19/22 17:00 Nucleated RBCs # 0.0 /100WBC 02/19/22 17:00 Sodium 141 mmol/L (136-145) 02/19/22 17:00 Potassium 4.2 mmol/L (3.5-5.1) 02/19/22 17:00 Chloride 105 mmol/L (98-107) 02/19/22 17:00 Carbon Dioxide 27 mmol/L (22-29) 02/19/22 17:00 Anion Gap 13.2 (5-19) 02/19/22 17:00 BUN 12 mg/dL (6-20) 02/19/22 17:00 Creatinine 1.0 mg/dL (0.5-0.9) H 02/19/22 17:00 GFR Calculation 63.5 mL/min (90-130) L 02/19/22 17:00 Glucose 115 mg/dL (65-115) 02/19/22 17:00 Calculated Osmolality 293 mOsm/kg (285-295) 02/19/22 17:00 Calcium 9.3 mg/dL (8.5-10.5) 02/19/22 17:00 Magnesium 2.0 mg/dL (1.7-2.3) 02/19/22 17:00 Total Bilirubin 0.2 mg/dL (0.15-1.2) 02/19/22 17:00 AST 21 U/L (0-32) 02/19/22 17:00 ALT 11 U/L (0-33) 02/19/22 17:00 Alkaline Phosphatase 100 U/L (35-105) 02/19/22 17:00 Total Protein 6.6 g/dL (6.6-8.7) 02/19/22 17:00 Albumin 4.2 g/dL (3.5-5.2) 02/19/22 17:00 Globulin 2.4 g/dL (1.3-4.6) 02/19/22 17:00 Lipase 41 U/L (13-60) 02/19/22 17:00 Urine Color Straw (Yellow) 02/19/22 17:00 Urine Appearance Clear (CLEAR) 02/19/22 17:00 Urine pH 6 (5-7) 02/19/22 17:00 Ur Specific [place] 1.005 (1.005-1.030) 02/19/22 17:00 Urine Protein Neg (Negative) 02/19/22 17:00 Urine Glucose (UA) Norm (Normal) 02/19/22 17:00 Urine Ketones Negative (Negative) 02/19/22 17:00 Urine Blood Neg (Negative) 02/19/22 17:00 Urine Nitrate Negative (Negative) 02/19/22 17:00 Urine Bilirubin Neg (Negative) 02/19/22 17:00 Urine Urobilinogen Norm mg/dL (Negative) 02/19/22 17:00 Ur Leukocyte Esterase Negative (Negative) 02/19/22 17:00 Discharge Plan Discharge Patient Disposition: Home Clinical Impression: Enteritis Condition: Stable Prescriptions: New hydrocodone-acetaminophen 5-325 mg tablet 1 tab PO Q8H PRN (Reason: pain) Qty: 7 0RF Continued ondansetron 4 mg tablet,disintegrating 4 mg PO Q6H PRN (Reason: nausea and vomiting) Qty: 14 0RF No Action Aimovig Autoinjector 140 mg/mL auto-injector 140 mg SUBCUT Q30D Tylenol Extra Strength 500 mg Tablet 1,000 mg PO PRN ibuprofen 200 mg Tablet 800 mg PO PRN prednisone 50 mg tablet 50 mg PO DAILY Qty: 5 0RF ondansetron 4 mg tablet,disintegrating 4 mg PO Q8H PRN (Reason: nausea and vomiting) Qty: 15 0RF Reglan 10 mg tablet 10 mg PO TID PRN (Reason: nausea and vomiting) Qty: 20 0RF Rx Instructions: may use instead of zofran oxycodone 5 mg tablet 5 mg PO Q4H PRN (Reason: pain) Qty: 20 0RF amoxicillin-pot clavulanate 875-125 mg tablet 1 tab PO BID Qty: 20 0RF Discharge Orders: Discharge ED (Routine); Ordered 02/19/22 Ordered By: Chavez Kinsey Referrals: Mirlande Kaur FNP [Primary Care Provider] - 1-3 days Patient Instructions: Enteritis (ED), Opioid Safety Activity Restrictions/Additional Instructions: Medications as directed. Return for vomiting liquids or medications despite treatment, worsening pain despite treatment, significant blood in the stool, other concerning symptoms. Coding Level of Care Code ED Insurance Writer for Chg Fwd Exam Detailed Documented by User: Chavez Kinsey DO 02/19/22 20:24 HPI - Abdominal Pain General: Chief Complaint: Abdominal Pain Stated Complaint: upper abd pain v/n/d Time Seen by Provider: 02/19/22 16:42 PFSH ED PFSH: Medical History Migraine Without aura Surgical History History of bilateral tubal ligation (04/09/13) . Performed by Dr. Lan at [facility] [place]. History of laparoscopic cholecystectomy (~08/2010) History of laparoscopy (03/12/12) Dx: Pelvic pain. Performed by Dr. Latif at [facility] History of LAVH (12/10/14) With bilateral salpingectomy. Dx: Chronic pelvic pain, Irregular bleeding, Dysmenorrhea. Path negative. History of tonsillectomy and adenoidectomy (~2003) Age 18 Family History Grandfather Heart disease Social History Smoking and tobacco status: never smoked Second hand smoke exposure: No Alcohol intake: current Alcohol intake frequency: few times a month Desire information about alcohol rehabilitation?: No Desire information about substance/drug rehabilitation?: No Course Vital Signs: Vital signs: Vital Signs Temperature 97.8 F 02/19/22 16:22 Pulse Rate 106 H 02/19/22 16:22 Respiratory Rate 16 02/19/22 18:28 Blood Pressure 127/76 02/19/22 16:22 Pulse Oximetry 96 02/19/22 18:28 Oxygen Delivery Me thod 02/19/22 16:22 MDM - Abdominal Pain Medical Decision Making 36-year-old female checked out to me by the previous physician at shift change. Said he has epigastric discomfort she has nausea and vomiting as well. Her vitals are good, save mild tachycardia for which she has received IV fluid.. CBC is normal. Her creatinine is 1. BMP is normal. Urinalysis is negative. CT is performed and shows prominent fluid in the small bowel without dilatation suggestive of enteritis symptoms are improved after fentanyl and Zofran here. She will be allowed home. Lab Data : 02/19/22 17:00 02/19/22 17:00 Labs/Radiology: Radiology Impressions Abdomen/Pelvis CT 02/19/22 18:21
[2022-02-19] MEDS: lactated ringers 1,000 ML 999 ML IV (17:10)
[2022-02-19] MEDS: famotidine 20 mg/2 mL INJ 40 MG IVP (17:10)
[2022-02-19 17:19] LABS: Add Urine Microscopic? NO; Charge for UA Resulting for Rev
[2022-02-19 17:21] LABS: Basophils # 0.1 10^3/uL (0.0-0.1); Basophils % 0.6 %; Eosinophils # 2.2 10^3/uL (0.0-0.8); Eosinophils % 27.3 %; Hematocrit 42.7 % (37.0-47.0); Hemoglobin 14.1 g/dL (11.5-15.3); Lymphocytes # 1.8 10^3/uL (0.8-4.8); Lymphocytes % 21.4 %; Mean Corpuscular Hemoglobin 29.3 pg (28.0-34.0); Mean Corpuscular Volume 88.6 fl (81-99); Mean Platelet Volume 10.6 fL (7.4-10.4); Monocytes # 0.4 10^3/uL (0.2-0.9); Monocytes % 5.3 %; Neutrophils % 45.2 %; Nucleated Red Blood Cells % 0 %; Platelet Count 270 10^3/cmm (130-400); Red Blood Count 4.82 10^6/uL (4.1-5.3); Red Cell Distribution Width 11.8 % (12.1-15.1); White Blood Count 8.2 10^3/uL (4.0-10.0)
[2022-02-19 17:26] LABS: Bilirubin Urine Neg (Negative); Blood Urine Neg (Negative); Glucose Urine UA Norm (Normal); Ketones Urine Negative (Negative); Leukocyte Esterase Urine Negative (Negative); Nitrate Urine Negative (Negative); Protein Urine Neg (Negative); Specific Gravity, Urine 1.005 (1.005-1.030); Urine Appearance Clear (CLEAR); Urine Color Straw (Yellow); Urobilinogen Urine Norm (Negative); pH Urine 6 (5-7)
[2022-02-19 17:48] LABS: Alanine Aminotransferase 11 U/L (0-33); Albumin Level 4.2 g/dL (3.5-5.2); Alkaline Phosphatase 100 U/L (35-105); Anion Gap 13.2 (5-19); Aspartate Amino Transferase 21 U/L (0-32); Blood Urea Nitrogen 12 mg/dL (6-20); Calcium 9.3 mg/dL (8.5-10.5); Carbon Dioxide 27 mmol/L (22-29); Chloride 105 mmol/L (98-107); Globulin 2.4 g/dL (1.3-4.6); Glomerular Filtration Rate 63.5 mL/min (90-130); Glucose 115 mg/dL (65-115); Lipase 41 U/L (13-60); Osmolality Calculated 293 mOsm/kg (285-295); Potassium 4.2 mmol/L (3.5-5.1); Sodium 141 mmol/L (136-145); Total Bilirubin 0.2 mg/dL (0.15-1.2); Total Protein 6.6 g/dL (6.6-8.7)
[2022-02-19] MEDS: lidocaine 2% viscous 15 ML, aluminum-mag hydrox-simethicon 30 ML, sucralfate oral liq 1 GM PO (18:11)
--- NOTE | 2022-02-19 18:21 | CTR_ITS ---
PROCEDURE INFORMATION: Exam: CT Abdomen And Pelvis With Contrast Exam date and time: 02/19/2022 6:33 PM Age: 36 years old Clinical indication: Abdominal pain; Epigastric; Prior surgery; Surgery date: 6+ months; Surgery type: Gb, hyster, tubal; Additional info: Epigastric abd pain TECHNIQUE: Imaging protocol: Computed tomography of the abdomen and pelvis with contrast. Radiation optimization: All CT scans at this facility use at least one of these dose optimization techniques: automated exposure control; mA and/or kV adjustment per patient size (includes targeted exams where dose is matched to clinical indication); or iterative reconstruction. Contrast material: OMNI 350; Contrast volume: 80 ml; Contrast route: INTRAVENOUS (IV); COMPARISON: CT abdomen pelvis w con* [id number] 04/29/2018 5:12 PM RADIATION DOSE METRICS: Total DLP (mGy-cm): 451.18 FINDINGS: Liver: Normal. No mass. Gallbladder and bile ducts: Cholecystectomy. Pancreas: Normal. No ductal dilation. Spleen: Normal. No splenomegaly. Adrenal glands: Normal. No mass. Kidneys and ureters: Normal. No hydronephrosis. Stomach and bowel: Prominent fluid in the small bowel without dilation suggestive of an enteritis. Appendix: No evidence of appendicitis. Intraperitoneal space: Unremarkable. No free air. No significant fluid collection. Vasculature: Unremarkable. No abdominal aortic aneurysm. Lymph nodes: Unremarkable. No enlarged lymph nodes. Urinary bladder: Unremarkable as visualized. Reproductive: Left ovary 15 mm cyst, likely follicular. Bones/joints: Chronic bilateral L5 pars interarticularis defects. Soft tissues: Unremarkable. CT/CT abdomen pelvis w con* [id number] IMPRESSION: 1. Prominent fluid in the small bowel without dilation suggestive of an enteritis. 2. Left ovary 15 mm cyst, likely follicular. 3. Cholecystectomy.
[2022-02-19 18:28] VITALS: RESP 16; O2SAT 96
[2022-02-19] MEDS: ondansetron 2 mg/ML SDV 2 mL 4 MG IVP (18:28)
[2022-02-19] MEDS: fentaNYL 50 mcg/mL INJ 2mL IVP (18:28)
[2022-02-19] MEDS: iohexol 350 mg/mL 100 mL Btl 80 ML IV (18:36)
[2022-02-19] MEDS: ketorolac 30 mg/mL INJ 15 MG IVP (19:21)
[2022-02-19] MEDS: metroNIDAZOLE 500 MG Tablet PO (19:21)
== END 2022-02-19 19:28 | disposition home or self-care (01) ==
PROVIDERS: Student in an Organized Health Care Education/Training Program; Emergency Provider Emergency Medicine; PCP Nurse Practitioner Family
DX: K52.9 Noninfective gastroenteritis and colitis, unspecified (principal)
CPT/HCPCS: 74177; 80053; 81003; 83690; 83735; 85025; 96361; 96374; 96375; 99285; J1885; J2405; J3010; J3490; Q9967

== ENCOUNTER 2022-02-25 03:04 | Emergency (ER) | payer BC, SELFPAY ==
[2022-02-25] VITALS (7 sets, daily range): BP systolic 101–120; BP diastolic 63–89; PULSE 75–104; RESP 18–20; TEMP 37; O2SAT 92–100; BMI 23.3
--- NOTE | 2022-02-25 03:06 | W.ED.ABDPA2 ---
HPI - Abdominal Pain General: Chief Complaint: Abdominal Pain Stated Complaint: n/v, abdomen pain, back pain Time Seen by Provider: 02/25/22 03:05 History of Present Illness: Ms. Treviño is a 36-year-old lady without pertinent past medical history presents to the emergency department due to abdominal pain. She reports about 2-week onset of symptoms where she went from chronic constipation to diarrhea. Symptoms persisted associated with pain, nausea, vomiting worse with eating and she was seen and evaluated in the emergency department. At that time she was discharged with metronidazole and hydrocodone as well as Zofran which had been somewhat managing symptoms though symptoms persisted and became overwhelming again last night. Intensity symptoms is severe. A cramping stabbing pain with sharp radiation back in the epigastric region. Worse with eating. Still has nausea and vomiting which is nonbilious and nonbloody. Still has loose stools. No other specific changes in health, exacerbating, or alleviating factors identified. Onset (ago): week(s) Pain Consistency: constant Location: Epigastric Severity: severe Quality: cramping and stabbing Radiation: back Exacerbating factors: eating Relieving factors: nothing Review of Systems General: Reports: 10 or more systems reviewed and unremarkable except in HPI and below PFSH ED PFSH: Medical History Migraine Without aura Surgical History History of bilateral tubal ligation (04/09/13) . Performed by Dr. Lan at [facility] [place]. History of laparoscopic cholecystectomy (~08/2010) History of laparoscopy (03/12/12) Dx: Pelvic pain. Performed by Dr. Latif at [facility] History of LAVH (12/10/14) With bilateral salpingectomy. Dx: Chronic pelvic pain, Irregular bleeding, Dysmenorrhea. Path negative. History of tonsillectomy and adenoidectomy (~2003) Age 18 Family History Grandfather Heart disease Social History Smoking and tobacco status: never smoked Second hand smoke exposure: No Alcohol intake: current Alcohol intake frequency: few times a month Desire information about alcohol rehabilitation?: No Desire information about substance/drug rehabilitation?: No Physical Exam Const: COMMON NORMALS: alert GENERAL APPEARANCE: cooperative, well developed and in distress (Discomfort due to pain) HENMT: COMMON NORMALS: normocephalic and atraumatic HEAD & SCALP: normocephalic and atraumatic Eye: COMMON NORMALS: conjunctivae normal CONJUNCTIVA: Yes conjunctivae normal SCLERA: sclerae normal Neck/C-Spine: COMMON NORMALS: supple GENERAL: Yes trachea midline Resp: COMMON NORMALS: normal respiratory effort EFFORT & INSPECTION: Yes able to speak in complete sentences Cardio: COMMON NORMALS: regular rate and regular rhythm RATE: regular rate RHYTHM: regular rhythm GI: COMMON NORMALS: Soft to palpation PALPATION: Yes Soft to palpation, Yes Tenderness to palpation present (GI), No Guarding due to palpation present (GI) and No Rigid due to palpation PERCUSSION: normal to percussion Extremity: GENERAL: Yes normal exam except as noted and No edema Neuro: COMMON NORMALS: moves all extremities SENSORIUM/ORIENTATION: Yes alert and No Orientation impaired Psych: COMMON NORMALS: mental status grossly normal and Normal thought process present THOUGHT PROCESS: Normal thought process present Course Vital Signs: Vital signs: Vital Signs Temperature 98.6 F 02/25/22 03:10 Pulse Rate 75 02/25/22 06:22 Respiratory Rate 18 02/25/22 06:22 Blood Pressure 116/63 02/25/22 06:22 Pulse Oximetry 100 02/25/22 06:22 Oxygen Delivery Me thod 02/25/22 03:37 MDM - Abdominal Pain Medical Decision Making 36-year-old lady presenting with abdominal symptoms. Exam as above. Laboratory studies without acute derangement requiring intervention. X-rays without acute fracture identified. Patient improved with symptomatic treatment and satisfactory for outpatient management. Medical Records I reviewed the patient's medical records. Lab Data I reviewed the patient's lab results. : 02/25/22 03:25 02/25/22 03:25 Labs/Radiology: Radiology Impressions Abdomen X-Ray 02/25/22 03:44 IMPRESSION: Prominent stool. Thoracic Spine X-Ray 02/25/22 03:44 IMPRESSION: Marginal osteophytes. Laboratory Results WBC 5.6 10^3/uL (4.0-10.0) 02/25/22 03:25 RBC 4.71 10^6/uL (4.1-5.3) 02/25/22 03:25 Hgb 13.8 g/dL (11.5-15.3) 02/25/22 03:25 Hct 41.2 % (37.0-47.0) 02/25/22 03:25 MCV 87.5 fl (81-99) 02/25/22 03:25 MCH 29.3 pg (28.0-34.0) 02/25/22 03:25 MCHC 33.5 g/dL (30.0-36.0) 02/25/22 03:25 RDW 11.9 % (12.1-15.1) L 02/25/22 03:25 Plt Count 251 10^3/cmm (130-400) 02/25/22 03:25 MPV 10.8 fL (7.4-10.4) H 02/25/22 03:25 Neut % (Auto) 26.8 % 02/25/22 03:25 Lymph % (Auto) 38.5 % 02/25/22 03:25 [place] % (Auto) 7.7 % 02/25/22 03:25 Eos % (Auto) 25.8 % 02/25/22 03:25 Baso % (Auto) 1.2 % 02/25/22 03:25 Neut # (Auto) 1.50 10^3/uL (1.8-7.7) L 02/25/22 03:25 Lymph # (Auto) 2.2 10^3/uL (0.8-4.8) 02/25/22 03:25 [place] # (Auto) 0.4 10^3/uL (0.2-0.9) 02/25/22 03:25 Eos # (Auto) 1.5 10^3/uL (0.0-0.8) H 02/25/22 03:25 Baso # (Auto) 0.1 10^3/uL (0.0-0.1) 02/25/22 03:25 Nucleated RBC % (auto) 0 % 02/25/22 03:25 Nucleated RBCs # 0.0 /100WBC 02/25/22 03:25 Sodium 142 mmol/L (136-145) 02/25/22 03:25 Potassium 4.5 mmol/L (3.5-5.1) 02/25/22 03:25 Chloride 107 mmol/L (98-107) 02/25/22 03:25 Carbon Dioxide 24 mmol/L (22-29) 02/25/22 03:25 Anion Gap 15.5 (5-19) 02/25/22 03:25 BUN 7 mg/dL (6-20) 02/25/22 03:25 Creatinine 0.7 mg/dL (0.5-0.9) 02/25/22 03:25 GFR Calculation 95.8 mL/min (90-130) 02/25/22 03:25 Glucose 106 mg/dL (65-115) 02/25/22 03:25 Calculated Osmolality 292 mOsm/kg (285-295) 02/25/22 03:25 Calcium 9.1 mg/dL (8.5-10.5) 02/25/22 03:25 Total Bilirubin 0.2 mg/dL (0.15-1.2) 02/25/22 03:25 AST 28 U/L (0-32) 02/25/22 03:25 ALT 22 U/L (0-33) 02/25/22 03:25 Alkaline Phosphatase 85 U/L (35-105) 02/25/22 03:25 Total Protein 6.5 g/dL (6.6-8.7) L 02/25/22 03:25 Albumin 4.3 g/dL (3.5-5.2) 02/25/22 03:25 Globulin 2.2 g/dL (1.3-4.6) 02/25/22 03:25 Lipase 45 U/L (13-60) 02/25/22 03:25 Urine Color Yellow (Yellow) 02/25/22 03:58 Urine Appearance Clear (CLEAR) 02/25/22 03:58 Urine pH 8 (5-7) H 02/25/22 03:58 Ur Specific [place] 1.010 (1.005-1.030) 02/25/22 03:58 Urine Protein Neg (Negative) 02/25/22 03:58 Urine Glucose (UA) Norm (Normal) 02/25/22 03:58 Urine Ketones Negative (Negative) 02/25/22 03:58 Urine Blood Neg (Negative) 02/25/22 03:58 Urine Nitrate Negative (Negative) 02/25/22 03:58 Urine Bilirubin Neg (Negative) 02/25/22 03:58 Prot Sulfosalicylic Acd Negative (Negative) 02/25/22 03:58 Urine Urobilinogen Neg mg/dL (Negative) 02/25/22 03:58 Ur Leukocyte Esterase Negative (Negative) 02/25/22 03:58 Discharge Plan Discharge Patient Disposition: Home Clinical Impression: Abdominal pain, Nausea vomiting and diarrhea Condition: Stable Prescriptions: New ondansetron 4 mg tablet,disintegrating 4 mg PO Q8H PRN (Reason: nausea and vomiting) Qty: 15 0RF Reglan 10 mg tablet 10 mg PO TID PRN (Reason: nausea and vomiting) Qty: 20 0RF Rx Instructions: may use instead of zofran oxycodone 5 mg tablet 5 mg PO Q4H PRN (Reason: pain) Qty: 20 0RF amoxicillin-pot clavulanate 875-125 mg tablet 1 tab PO BID Qty: 20 0RF No Action Aimovig Autoinjector 140 mg/mL auto-injector 140 mg SUBCUT Q30D Tylenol Extra Strength 500 mg Tablet 1,000 mg PO PRN ibuprofen 200 mg Tablet 800 mg PO PRN prednisone 50 mg tablet 50 mg PO DAILY Qty: 5 0RF hydrocodone-acetaminophen 5-325 mg tablet 1 tab PO Q8H PRN (Reason: pain) Qty: 7 0RF ondansetron 4 mg tablet,disintegrating 4 mg PO Q6H PRN (Reason: nausea and vomiting) Qty: 14 0RF Discharge Orders: Discharge ED (Routine); Ordered 02/25/22 Ordered By: Sang Nava Referrals: Mirlande Kaur FNP [Primary Care Provider] - Discharge Diet: Usual diet Discharge Activity: Increase activity as tolerated Patient Instructions: Diet for Stomach Ulcers and Gastritis (ED), Abdominal Pain (ED), Opioid Safety, Pain Management Activity Restrictions/Additional Instructions: Thank you for visiting the emergency department. You were seen and evaluated for continued abdominal symptoms. The exact cause of your symptoms is unclear. I will prescribe additional treatment. Please follow-up with your primary care provider. I will also message case management for follow-up with GI or general surgery for endoscopy. Return to the emergency department for uncontrolled symptoms or anything else that you are concerned about a feel needs emergency department evaluation. Coding Level of Care Code ED Apparel Sales Leader for Chg Fwd Exam Comprehensive
[2022-02-25] MEDS: fentaNYL 50 mcg/mL INJ 2mL IVP ×2 (03:29→05:26)
[2022-02-25] MEDS: ketorolac 30 mg/mL INJ 15 MG IVP (03:31)
[2022-02-25 03:32] LABS: Basophils # 0.1 10^3/uL (0.0-0.1); Basophils % 1.2 %; Eosinophils # 1.5 10^3/uL (0.0-0.8); Eosinophils % 25.8 %; Hematocrit 41.2 % (37.0-47.0); Hemoglobin 13.8 g/dL (11.5-15.3); Lymphocytes # 2.2 10^3/uL (0.8-4.8); Lymphocytes % 38.5 %; Mean Corpuscular HGB Conc 33.5 g/dL (30.0-36.0); Mean Corpuscular Hemoglobin 29.3 pg (28.0-34.0); Mean Corpuscular Volume 87.5 fl (81-99); Mean Platelet Volume 10.8 fL (7.4-10.4); Monocytes # 0.4 10^3/uL (0.2-0.9); Monocytes % 7.7 %; Neutrophils % 26.8 %; Nucleated Red Blood Cells % 0 %; Platelet Count 251 10^3/cmm (130-400); Red Blood Count 4.71 10^6/uL (4.1-5.3); Red Cell Distribution Width 11.9 % (12.1-15.1); White Blood Count 5.6 10^3/uL (4.0-10.0)
[2022-02-25] MEDS: ondansetron 2 mg/ML SDV 2 mL 4 MG IVP (03:32)
[2022-02-25] MEDS: sodium chloride 0.9% 1,000 ML 999 ML IV (03:33)
--- NOTE | 2022-02-25 03:44 | XRR_ITS ---
PROCEDURE INFORMATION: Exam: XR Abdomen Exam date and time: 02/25/2022 5:14 AM Age: 36 years old Clinical indication: Nausea and vomiting; Abdominal pain; Generalized; Prior surgery; Surgery type: Gb. Hysterectomy; Patient HX: Abd pain with n/v. HX of enteritis. ; Additional info: N/v/d, worse pain, HX enteritis TECHNIQUE: Imaging protocol: Radiologic exam of the abdomen. Views: Frontal supine view of the abdomen. 1 View. COMPARISON: CT abdomen pelvis w con* [id number] 02/19/2022 6:33 PM FINDINGS: Gastrointestinal tract: Prominent stool. Organs: Status post cholecystectomy. Vasculature: Punctate pelvic calcifications, presumably vascular in etiology. Bones/joints: Unremarkable. XR/XR abdomen 1V* [id number] IMPRESSION: Prominent stool.
--- NOTE | 2022-02-25 03:44 | XRR_ITS ---
PROCEDURE INFORMATION: Exam: XR Thoracic Spine Exam date and time: 02/25/2022 5:14 AM Age: 36 years old Clinical indication: Pain in thoracic spine; Patient HX: C/O RT mid/upper back pain from wretching/vomiting episodes. ; Additional info: R mid back pain after vomiting TECHNIQUE: Imaging protocol: Radiologic exam of the thoracic spine. Views: 3 views. COMPARISON: CT abdomen pelvis w con* [id number] 02/19/2022 6:33 PM FINDINGS: Bones/joints: Marginal osteophytes without significant disc space narrowing. No acute bony injury or malalignment in the thoracic spine. Soft tissues: Normal caliber of the paraspinous soft tissues. XR/XR thoracic spine 3V* [id number] IMPRESSION: Marginal osteophytes.
[2022-02-25] MEDS: lidocaine 2% viscous 15 ML, aluminum-mag hydrox-simethicon 30 ML, sucralfate oral liq 1 GM PO (03:53)
[2022-02-25 03:57] LABS: Alanine Aminotransferase 22 U/L (0-33); Albumin Level 4.3 g/dL (3.5-5.2); Alkaline Phosphatase 85 U/L (35-105); Chloride 107 mmol/L (98-107); Potassium 4.5 mmol/L (3.5-5.1); Sodium 142 mmol/L (136-145)
[2022-02-25 04:07] LABS: Add Urine Microscopic? NO; Charge for UA Resulting for Rev
[2022-02-25 04:22] LABS: Anion Gap 15.5 (5-19); Aspartate Amino Transferase 28 U/L (0-32); Blood Urea Nitrogen 7 mg/dL (6-20); Calcium 9.1 mg/dL (8.5-10.5); Carbon Dioxide 24 mmol/L (22-29); Globulin 2.2 g/dL (1.3-4.6); Glomerular Filtration Rate 95.8 mL/min (90-130); Glucose 106 mg/dL (65-115); Osmolality Calculated 292 mOsm/kg (285-295); Total Bilirubin 0.2 mg/dL (0.15-1.2); Total Protein 6.5 g/dL (6.6-8.7)
[2022-02-25 04:23] LABS: Lipase 45 U/L (13-60)
[2022-02-25 04:24] LABS: Bilirubin Urine Neg (Negative); Blood Urine Neg (Negative); Glucose Urine UA Norm (Normal); Ketones Urine Negative (Negative); Leukocyte Esterase Urine Negative (Negative); Nitrate Urine Negative (Negative); Protein Urine Neg (Negative); Sulfosalicylic Acid Urine Negative (Negative); Urine Appearance Clear (CLEAR); Urine Color Yellow (Yellow); Urobilinogen Urine Neg (Negative); pH Urine 8 (5-7)
[2022-02-25] MEDS: dicyclomine 10 mg Capsule PO (05:26)
[2022-02-25] MEDS: fluconazole 100 mg Tablet 150 MG PO (06:16)
== END 2022-02-25 06:19 | disposition home or self-care (01) ==
PROVIDERS: Emergency Provider Emergency Medicine; PCP Nurse Practitioner Family
DX: R10.9 Unspecified abdominal pain (principal); R11.2 Nausea with vomiting, unspecified; R19.7 Diarrhea, unspecified
CPT/HCPCS: 72072; 74018; 80053; 81003; 83690; 85025; 96361; 96374; 96375; 96376; 99284; J1885; J2405; J3010; J7030

== ENCOUNTER 2022-05-29 16:38 | Outpatient (CLI) | payer BC, SELFPAY ==
--- NOTE | 2022-05-29 16:49 | XR_ITS ---
WS: [id number] Exam: XR chest 2V* [id number] Date/Time of Exam: 05/29/2022 4:49 PM Reason For Exam: COUGH, BRONCHITIS Comparison 12/20/2018. Findings: The lungs are clear and fully expanded. Costophrenic angles are sharp. No infiltrates. Bronchovascula r relief appears normal. Cardiac silhouette is unremarkable. Bony elements are intact. XR/XR chest 2V* [id number] IMPRESSION: Unremarkable chest radiograph.
== END 2022-05-29 16:39 | disposition home or self-care (01) ==
PROVIDERS: PCP Nurse Practitioner Family; Visit Provider Nurse Practitioner Family
DX: J40 Bronchitis, not specified as acute or chronic (principal); R05.9 Cough, unspecified
CPT/HCPCS: 71046

== ENCOUNTER 2023-01-11 06:38 | Outpatient (CLI) | payer BC, SELFPAY ==
--- NOTE | 2023-01-11 | CT_ITS ---
WS: [id number] CT FACIAL BONES HISTORY: ARTHRALGIA BILAT TMJ TECHNIQUE: Images obtained from the supraorbital location through the mandible. Soft tissue and bone windows are reviewed. Coronal and sagittal reformats have also been submitted. DLP: 543.[address] scans at [facility] use at least one of these dose optimization techniques: automated e xposure control; mA and/or kV adjustment per patient size (includes targeted exams where dose is matc hed to clinical indication); or iterative reconstruction. COMPARISON: None available. TM joints including the mandibular condyles and mandibular heads appear normal. No significant spurri ng or osteoarthritic changes. No narrowing of the TM joint. No erosions. Symmetric appearance of the mandibular heads in closed position. No fractures. Facial bones are intact. Zygomatic arches and nasal bones are normal. Normal mastoid ai r cells. The visualized sinuses are unremarkable. Normal orbits and globes. Upper cervical spine is n ormal. CT/CT facial bones wo con* [id number] IMPRESSION: 1. Normal appearance of the osseous structures associated with the TM joints. No erosions or osteophytic spurring. 2. CT is not diagnostic for articular cartilage abnormality.
== END 2023-01-11 06:39 | disposition home or self-care (01) ==
PROVIDERS: PCP Nurse Practitioner Family; Visit Provider Otolaryngology
DX: H92.03 Otalgia, bilateral (principal)
CPT/HCPCS: 70486

== ENCOUNTER 2023-02-16 12:03 | Outpatient (CLI) | payer BC, SELFPAY ==
--- NOTE | 2023-02-16 12:10 | CT_ITS ---
WS: [id number] CT ABDOMEN AND PELVIS WITH CONTRAST HISTORY: LOWER ABDOMINAL PAIN TECHNIQUE: Imaging performed of the abdomen and pelvis with IV contrast. Single phase imaging of the abdomen. Coronal and sagittal reformats are submitted. All CT scans at [facility] use at [address] one of these dose optimization techniques: automated exposure control; mA and/or kV adjustment per patient size (includes targeted exams where dose is matched to clinical indication); or iterative re construction. IV CONTRAST: Omnipaque 350; 100 mL IV. Oral contrast: Yes. DLP: 360.63 mGy.cm COMPARISON: 02/19/2022 Lower thorax: Lung bases are clear. Heart is normal size. Small hiatal hernia. Liver/biliary system: Normal size with no intrahepatic dilatation. Gallbladder: Cholecystectomy. Pancreas: Normal size pancreas and pancreatic duct. No adjacent inflammation. Spleen: Normal size spleen. No mass or infarct. Adrenal glands: Normal. Right kidney: Normal. Left kidney: Normal. Aorta: Normal. Lymphadenopathy: None. Free fluid: None. GI tract: Normal stomach. No small bowel or colon obstruction. Normal appendix. No diverticulitis. Abdominal wall: Unremarkable abdominal wall. No hernia. Pelvis: Surgically absent uterus. Urinary bladder is normal. Ovaries are both identified and normal. Bones: Unremarkable. IMPRESSION: 1. No acute abdominal or pelvic abnormalities. 2. Normal appendix. 3. No renal obstruction. 4. Prior cholecystectomy and hysterectomy. 5. No GI tract obstruction.
[2023-02-16] MEDS: iohexol 350 mg/mL 500 mL Btl (per mL) PO (14:04)
[2023-02-16] MEDS: iohexol 350 mg/mL 500 mL Btl (per mL) IV (14:05)
== END 2023-02-16 12:04 | disposition home or self-care (01) ==
PROVIDERS: PCP Nurse Practitioner Family; Visit Provider Nurse Practitioner Family
DX: R10.30 Lower abdominal pain, unspecified (principal)
CPT/HCPCS: 74177; Q9967

== ENCOUNTER 2023-10-15 08:23 | Outpatient (CLI) | payer BC, SELFPAY ==
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
== END 2023-10-15 08:24 | disposition home or self-care (01) ==
LOC: RAD 08:24
PROVIDERS: PCP Nurse Practitioner Family; Visit Provider Nurse Practitioner Family
DX: M25.551 Pain in right hip (principal); M43.16 Spondylolisthesis, lumbar region; M47.816 Spondylosis without myelopathy or radiculopathy, lumbar region; V89.2XXA Person injured in unspecified motor-vehicle accident, traffic, initial encounter
CPT/HCPCS: 72148; 72195

== ENCOUNTER 2023-10-23 10:55 | Outpatient (CLI) | payer BC, SELFPAY ==
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
== END 2023-10-23 10:56 | disposition home or self-care (01) ==
LOC: RAD 10:56
PROVIDERS: PCP Nurse Practitioner Family; Visit Provider Nurse Practitioner Family
DX: M25.561 Pain in right knee (principal)
CPT/HCPCS: 73721

== ENCOUNTER 2023-12-10 12:09 | Outpatient (CLI) | payer BC, SELFPAY ==
--- NOTE | 2023-12-10 12:13 | US_ITS ---
WS: [id number] Ultrasound limited, RIGHT inguinal region. COMPARISON: 05/16/2019 HISTORY: RIGHT groin pain and lump. Ultrasound is directed to the RIGHT inguinal region in the area of pain and the palpable abnormality. No soft tissue mass is identified. This is a very limited evaluation of the inguinal region. On gifty ral of the images there does appear to be questionable loop of bowel. There is no incarceration. US/US abdomen limited [id number] IMPRESSION: Possible RIGHT inguinal hernia containing nonobstructed bowel. This should be f urther evaluated by CT. There is no obstruction. This was a very limited evalua tion of the RIGHT inguinal region.
== END 2023-12-10 12:10 | disposition home or self-care (01) ==
LOC: RAD 12:11
PROVIDERS: PCP Nurse Practitioner Family; Visit Provider Nurse Practitioner Family
DX: R19.03 Right lower quadrant abdominal swelling, mass and lump (principal)
CPT/HCPCS: 76705

== ENCOUNTER 2024-09-17 18:15 | Emergency (ER) | payer BC, SELFPAY ==
[2024-09-17 18:28] VITALS: BP 111/73; PULSE 97; RESP 20; TEMP 36.8; O2SAT 99; BMI 24.2
--- NOTE | 2024-09-17 18:39 | W.ED.ALLEREA ---
HPI - Allergic Reaction General: Chief complaint: Allergic Reaction Stated complaint: allergic reaction Time Seen by Provider: 09/17/24 18:30 Source: patient Mode of arrival: ambulatory Limitations: no limitations History of Present Illness: HPI narrative: 38-year-old female states she had had a hip injection today of Marcaine and [place] states she feels like she might be having allergic reaction she been having some diarrhea she states she is having tingling in her chest and face as well. She denies any rash she denies any severe dyspnea denies any vomiting. Associated symptoms: Deny abdominal pain, nausea or vomiting Related Data Home Medications ?Medication ?Instructions ?Recorded ?Confirmed erenumab-aooe 140 mg/mL 140 mg SUBCUT Q30D 08/07/19 11/07/20 subcutaneous auto-injector (Aimovig Autoinjector) acetaminophen 500 mg tablet 1,000 mg PO PRN 08/11/20 11/07/20 (Tylenol Extra Strength) ibuprofen 200 mg tablet 800 mg PO PRN 08/11/20 11/07/20 Previous Rx's ?Medication ?Instructions ?Recorded prednisone 50 mg tablet 50 mg PO DAILY #5 tabs 06/27/21 hydrocodone 5 mg-acetaminophen 325 1 tab PO Q8H PRN pain #7 tabs 02/19/22 mg tablet ondansetron 4 mg disintegrating 4 mg PO Q6H PRN nausea and 02/19/22 tablet vomiting #14 tabs amoxicillin 875 mg-potassium 1 tab PO BID #20 tabs 02/25/22 clavulanate 125 mg tablet metoclopramide HCl 10 mg tablet 10 mg PO TID PRN nausea and 02/25/22 (Reglan) vomiting #20 tabs ondansetron 4 mg disintegrating 4 mg PO Q8H PRN nausea and 02/25/22 tablet vomiting #15 tabs oxycodone 5 mg tablet 5 mg PO Q4H PRN pain #20 tabs 02/25/22 ondansetron 4 mg disintegrating 4 mg PO Q6H PRN nausea and 09/17/24 tablet vomiting #14 tabs Allergies Allergy/AdvReac Type Severity Reaction Status Date / Time dexamethasone (From Decadron) Allergy blacking Verified 09/17/24 18:33 out morphine Allergy ADR-Migrain Verified 09/17/24 18:33 e propofol Allergy ADR-Muscle Verified 09/17/24 18:34 Pain shellfish derived Allergy ALGY-Difficulty Verified 09/17/24 18:33 Breathing Review of Systems Const: Denies: fever(s), chills, body aches or change in appetite ENMT: Denies: throat pain or dental pain Card: Denies: chest pain Resp: Denies: dyspnea GI: Reports: diarrhea; Denies: abdominal pain, nausea or vomiting Musc: Denies: neck pain or back pain Skin/Breast: Denies: rash Neuro: Denies: headache(s) PFSH ED PFSH: Medical History Migraine Without aura Surgical History History of laparoscopy (03/12/12) Dx: Pelvic pain. Performed by Dr. Latif at [facility] History of laparoscopic cholecystectomy (~08/2010) History of tonsillectomy and adenoidectomy (~2003) Age 18 History of LAVH (12/10/14) With bilateral salpingectomy. Dx: Chronic pelvic pain, Irregular bleeding, Dysmenorrhea. Path negative. History of bilateral tubal ligation (04/09/13) . Performed by Dr. Lan at [facility]. Family History Grandfather Heart disease Social History Smoking and tobacco/nicotine status: never used tobacco/nicotine Second hand smoke exposure: No Alcohol intake: current Alcohol intake frequency: few times a month Substance/Drug Use: never Physical Exam Const: COMMON NORMALS: no acute distress, patient oriented x3 and healthy appearing HENMT: COMMON NORMALS: normocephalic and atraumatic HEAD & SCALP: normocephalic and atraumatic Eye: COMMON NORMALS: conjunctivae normal CONJUNCTIVA: Yes conjunctivae normal Neck/C-Spine: COMMON NORMALS: full ROM and supple Chest: COMMONS NORMALS: normal inspection of the chest Resp: COMMON NORMALS: normal respiratory effort, No retractions, No use of accessory muscles and clear to auscultation bilaterally AUSCULTATION: clear to auscultation bilaterally Cardio: COMMON NORMALS: regular rate, regular rhythm and No murmurs present (Cardio) RATE: regular rate RHYTHM: regular rhythm Extremity: COMMON NORMALS: normal to inspection and full ROM Neuro: COMMON NORMALS: patient oriented x3, moves all extremities and no focal motor deficits Psych: COMMON NORMALS: mental status grossly normal, Normal thought process present and cooperative THOUGHT PROCESS: Normal thought process present Skin: COMMON NORMALS: no rashes or lesions noted and no wounds GENERAL SKIN EXAM: no rashes or lesions noted Course Vital Signs: Vital signs: Vital Signs Temperature 98.3 F 09/17/24 18:28 Pulse Rate 83 09/17/24 19:46 Respiratory Rate 16 09/17/24 19:30 Blood Pressure 125/85 09/17/24 19:46 Pulse Oximetry 98 09/17/24 19:46 Oxygen Delivery Me thod Room Air 09/17/24 19:14 MDM - Allergic Reaction Medical Decision Making Patient presents with allergic reaction she has been well-appearing here feels improved she stable for discharge follow-up with PCP return if worsening. Medical Records I reviewed the patient's medical records. No radiology studies performed this visit Discharge Plan Discharge Patient Disposition: Home Clinical Impression: Allergic reaction Condition: Stable Prescriptions: New ondansetron 4 mg tablet,disintegrating 4 mg PO Q6H PRN (Reason: nausea and vomiting) Qty: 14 0RF No Action Aimovig Autoinjector 140 mg/mL auto-injector 140 mg SUBCUT Q30D Tylenol Extra Strength 500 mg Tablet 1,000 mg PO PRN ibuprofen 200 mg Tablet 800 mg PO PRN prednisone 50 mg tablet 50 mg PO DAILY Qty: 5 0RF hydrocodone-acetaminophen 5-325 mg tablet 1 tab PO Q8H PRN (Reason: pain) Qty: 7 0RF ondansetron 4 mg tablet,disintegrating 4 mg PO Q6H PRN (Reason: nausea and vomiting) Qty: 14 0RF ondansetron 4 mg tablet,disintegrating 4 mg PO Q8H PRN (Reason: nausea and vomiting) Qty: 15 0RF Reglan 10 mg tablet 10 mg PO TID PRN (Reason: nausea and vomiting) Qty: 20 0RF Rx Instructions: may use instead of zofran oxycodone 5 mg tablet 5 mg PO Q4H PRN (Reason: pain) Qty: 20 0RF amoxicillin-pot clavulanate 875-125 mg tablet 1 tab PO BID Qty: 20 0RF Discharge Orders: Discharge ED (Routine); Ordered 09/17/24 Ordered By: Miguel Smith Referrals: Araseli Ramirez FNP [Primary Care Provider] - Discharge Diet: Advance as tolerated Discharge Activity: Resume usual activity Patient Instructions: General Allergic Reaction (ED) Print Language: Barbadian Coding Level of Care Code ED Feed Handler for Tomas Valdez
[2024-09-17] MEDS: famotidine 20 mg/2 mL INJ 40 MG IVP (19:08)
[2024-09-17] MEDS: methylPREDNISolone sod succ 125 mg/2 mL INJ IVP (19:10)
[2024-09-17] MEDS: diphenhydrAMINE 50 mg/mL SDV 1mL IVP (19:13)
[2024-09-17 19:14] VITALS: BP 115/85; PULSE 87; RESP 16; O2SAT 98
[2024-09-17 19:30] VITALS: BP 125/85; PULSE 90; RESP 16; O2SAT 98
[2024-09-17] MEDS: ondansetron hcl ODT 4 mg Tab PO (19:45)
[2024-09-17 19:46] VITALS: BP 125/85; PULSE 83; O2SAT 98
== END 2024-09-17 19:52 | disposition home or self-care (01) ==
PROVIDERS: Emergency Provider Emergency Medicine; PCP Nurse Practitioner Family
DX: T78.40XA Allergy, unspecified, initial encounter (principal); X58.XXXA Exposure to other specified factors, initial encounter
CPT/HCPCS: 36415; 96374; 96375; 99284; J1200; J2919; J3490; Q0162

== ENCOUNTER 2024-11-13 23:38 | Emergency (ER) | payer BC, SELFPAY ==
[2024-11-13 23:39] VITALS: BP 121/66; PULSE 88; RESP 18; TEMP 37.1; O2SAT 99
[2024-11-14 00:10] LABS: Basophils % 0.6 %; Eosinophils # 0.2 10^3/uL (0.0-0.8); Eosinophils % 3.2 %; Hematocrit 39.8 % (36-47); Lymphocytes % 48.4 %; Mean Corpuscular HGB Conc 33.2 g/dL (30-55); Mean Corpuscular Hemoglobin 29.5 pg (27-33); Mean Platelet Volume 9.8 fL (7.4-10.4); Monocytes # 0.6 10^3/uL (0.2-0.9); Monocytes % 9.3 %; Neutrophils # 2.38 10^3/uL (1.8-7.7); Neutrophils % 38.3 %; Nucleated Red Blood Cells % 0 %; Platelet Count 296 10^3/cmm (157-399); Red Blood Count 4.47 10^6/uL (3.85-5.65); Red Cell Distribution Width 11.8 % (12.1-15.1); White Blood Count 6.22 10^3/uL (3.29-11.43)
[2024-11-14 00:21] LABS: Bilirubin Urine Negative (Negative); Blood Urine Negative (Negative); Glucose Urine UA Negative (Normal); Ketones Urine Trace (Negative); Leukocyte Esterase Urine Negative (Negative); Nitrate Urine Negative (Negative); Protein Urine 1+ (Negative); Specific Gravity, Urine 1.028 (1.005-1.030); Urine Appearance Cloudy (CLEAR); Urine Color Yellow (Yellow)
[2024-11-14 00:27] LABS: Add Urine Microscopic? YES; Bacteria Urine 3+ /hpf; Hyaline Casts Urine 0.81 /lpf
[2024-11-14 00:37] LABS: UA Slide Review UA Slide Review Perf
--- NOTE | 2024-11-14 00:37 | CTR_ITS ---
PROCEDURE INFORMATION: Exam: CT Abdomen And Pelvis With Contrast Exam date and time: 11/14/2024 2:23 AM Age: 39 years old Clinical indication: Abdominal pain; Other: Rlq; Prior surgery; Surgery date: 6+ months; Surgery type: Hyster; Additional info: Rlq abdominal pain TECHNIQUE: Imaging protocol: Computed tomography of the abdomen and pelvis with contrast. Radiation optimization: All CT scans at this facility use at least one of these dose optimization techniques: automated exposure control; mA and/or kV adjustment per patient size (includes targeted exams where dose is matched to clinical indication); or iterative reconstruction. Contrast material: OMNI 350; Contrast volume: 100 ml; Contrast route: INTRAVENOUS (IV); COMPARISON: MR pelvis wo con* [id number] 10/15/2023 8:55 AM RADIATION DOSE METRICS: Total DLP (mGy-cm): 481.68 FINDINGS: Liver: Normal. No mass. Gallbladder and biliary ducts: Cholecystectomy. Nondilated biliary system. Pancreas: Normal. No ductal dilation. Spleen: Normal. No splenomegaly. Adrenal glands: Normal. No mass. Kidneys and ureters: Mild severity right collecting system hydroureteronephrosis. Mild severity right renal parenchyma edema. 2-3 mm diameter calcified stone within the distal right ureter on axial series 4, image 77. Stomach and bowel: Unremarkable. No obstruction. No mucosal thickening. Appendix: Normal appendix. Intraperitoneal space: Unremarkable. No free air. No significant fluid collection. Vasculature: Unremarkable. No abdominal aortic aneurysm. Lymph nodes: Unremarkable. No enlarged lymph nodes. Urinary bladder: Bladder is collapsed. Reproductive: Hysterectomy. Unremarkable adnexa. Bones/joints: Grade 1 L5-S1 spondylolisthesis. Bilateral L5 pars defects. No acute fracture. Soft tissues: Unremarkable. CT/CT abdomen pelvis w con* [id number] IMPRESSION: Right renal obstructive uropathy changes secondary to small distal ureterolithiasis.
--- NOTE | 2024-11-14 00:37 | USR_ITS ---
PROCEDURE INFORMATION: Exam: US Duplex Artery or Vein of the Abdominal and/or Reproductive Organs, Limited Ovaries Exam date and time: 11/14/2024 12:48 AM Age: 39 years old Clinical indication: Other: RT adnexal pain; Prior surgery; Surgery date: 6+ months; Surgery type: Hysterectomy 2013 leaving both ovaries; G3-p2-a1-l2 presenting with right adnexal pain TECHNIQUE: Imaging protocol: Real-time duplex ultrasound scan of the arterial or venous flow with vergara scale, color Doppler flow and spectral waveform analysis with image documentation. Limited duplex exam focused on the ovaries. Duplex exam was performed to evaluate for torsion and other vascular conditions. COMPARISON: US renal BI* [id number] 04/10/2019 10:11 AM FINDINGS: Right ovary/adnexa: Normal arterial duplex Doppler waveforms in the ovary. No ovarian torsion. Left ovary/adnexa: Normal arterial duplex Doppler waveforms in the ovary. No ovarian torsion. PROCEDURE INFORMATION: Exam: US Pelvis Transabdominal, Complete, and US Pelvis Transvaginal, Non-obstetric Exam date and time: 11/14/2024 12:48 AM Age: 39 years old Clinical indication: Other: RT adnexal pain; Prior surgery; Surgery date: 6+ months; Surgery type: Hysterectomy 2013 leaving both ovaries; G3-p2-a1-l2 presenting with right adnexal pain TECHNIQUE: Imaging protocol: Real-time complete transabdominal and transvaginal pelvic ultrasound (non-obstetric) with image documentation. Transvaginal imaging was used for better evaluation of the endometrium, adnexa, and/or cervix. COMPARISON: US renal BI* [id number] 04/10/2019 10:11 AM FINDINGS: Uterus: Absent. Right ovary/adnexa: Ovary is normal. No mass. Normal arterial waveforms on duplex. Left ovary/adnexa: Ovary is normal. No mass. Normal arterial waveforms on duplex. Intraperitoneal space: No intraperitoneal fluid. Urinary bladder: Not evaluated. Appendix: Incidental finding of a 3 mm diameter compressible appendix within the right lower quadrant. US/US pelvic complete* [id number] IMPRESSION: Normal duplex of the ovaries. No evidence of ovarian torsion. IMPRESSION: 1. No acute findings. 2. Negative for ovarian torsion.
[2024-11-14 00:39] LABS: Alanine Aminotransferase 15 U/L (0-33); Albumin Level 4.3 g/dL (3.5-5.2); Alkaline Phosphatase 95 U/L (35-105); Anion Gap 14.7 (5-19); Aspartate Amino Transferase 20 U/L (0-32); Blood Urea Nitrogen 13 mg/dL (6-20); Carbon Dioxide 24 mmol/L (22-29); Chloride 106 mmol/L (98-107); Creatinine Clr Calc Pharmacy 77.4608; Globulin 2.6 g/dL (1.3-4.6); Glomerular Filtration Rate 62.4 mL/min (90-130); Glucose 108 mg/dL (65-115); Lipase 52 U/L (13-60); Osmolality Calculated 293 mOsm/kg (285-295); Potassium 3.7 mmol/L (3.5-5.1); Sodium 141 mmol/L (136-145); Total Bilirubin 0.2 mg/dL (0.15-1.2); Total Protein 6.9 g/dL (6.6-8.7)
[2024-11-14] MEDS: ketorolac 30 mg/mL INJ IVP (00:47)
[2024-11-14] MEDS: ondansetron 2 mg/ML SDV 2 mL 4 MG IVP (00:47)
--- NOTE | 2024-11-14 00:59 | ED_ITS ---
HPI - Abdominal Pain 2 General: Chief Complaint: Abdominal Pain Stated Complaint: Low abd pain Time Seen by Provider: 11/14/24 00:36 History of Present Illness: 39-year-old female with a history of ruth kevin headaches, hysterectomy and cholecystectomy who presents the emergency room with right lower quadrant abdominal pain. This started a few hours ago and is very severe. Sharp. Localized in her right adnexal region. She has had some nausea but no vomiting. No dysuria. No fevers. Related Data Home Medications ?Medication ?Instructions ?Recorded ?Confirmed erenumab-aooe 140 mg/mL 140 mg SUBCUT Q30D 08/07/19 11/07/20 subcutaneous auto-injector (Aimovig Autoinjector) acetaminophen 500 mg tablet 1,000 mg PO PRN 08/11/20 0 11/07/20 (Tylenol Extra Strength) ibuprofen 200 mg tablet 800 mg PO PRN 08/11/2011/07 Previous Rx's ?Medication ?Instructions ?Recorded prednisone 50 mg tablet 50 mg PO DAILY #5 tabs 06/27 hydrocodone 5 mg-acetaminophen 325 1 tab PO Q8H PRN pa in #7 tabs 02/19/22 mg tablet ondansetron 4 mg disintegrating 4 mg PO Q6H PRN nausea and 02/19/22 tablet vomiting #14 tabs amoxicillin 875 mg-potassium 1 tab PO BID #20 tabs clavulanate 125 mg tablet metoclopramide HCl 10 mg tablet 10 mg PO TID PRN nause a and 02/25/22 (Reglan) vomiting #20 tabs ondansetron 4 mg disintegrating 4 mg PO Q8H PRN nausea and 02/25/22 tablet vomiting #15 tabs oxycodone 5 mg tablet 5 mg PO Q4H PRN pain #20 tab s 02/25/22 ondansetron 4 mg disintegrating 4 mg PO Q6H PRN nausea and 09/17/24 tablet vomiting #14 tabs cephalexin 500 mg tablet 500 mg PO TID 7 days #21 tab s 11/14/24 hydrocodone 5 mg-acetaminophen 325 1 tab PO Q6H PRN pa in #20 tabs 11/14/24 mg tablet ondansetron 4 mg disintegrating 4 mg PO Q8H PRN nausea and 06/06/25 tablet vomiting #10 tabs tamsulosin 0.4 mg capsule (Flomax) 0.4 mg PO DAILY #30 caps 11/14/24 Allergies Allergy/AdvReac Type Severity Reaction Status Date / Time dexamethasone (From Decadron) Allergy blacking Verified 11/13/24 23:42 out morphine Allergy ADR-Migrain Verified 11/13/24 23:42 e propofol Allergy ADR-Muscle Verified 11/13/24 23:42 Pain shellfish derived Allergy ALGY-Difficulty Verified 11/13/24 23:42 Breathing Review of Systems 2 Narrative: Constitutional symptoms: Negative except as documented in HPI. Skin symptoms: Negative except as documented in HPI. Eye symptoms: Negative except as documented in HPI. ENMT symptoms: Negative except as documented in HPI. Respiratory symptoms: Negative except as documented in HPI. Cardiovascular symptoms: Negative except as documented in HPI. Gastrointestinal symptoms: Negative except as documented in HPI. Genitourinary symptoms: Negative except as documented in HPI. Musculoskeletal symptoms: Negative except as documented in HPI. Neurologic symptoms: Negative except as documented in HPI. Psychiatric symptoms: Negative except as documented in HPI. Endocrine symptoms: Negative except as documented in HPI. PFSH ED 2 PFSH: Medical History Migraine Without aura Surgical History History of laparoscopy (03/12/12) Dx: Pelvic pain. Performed by Dr. Latif at [facility] History of laparoscopic cholecystectomy (~08/2010) History of tonsillectomy and adenoidectomy (~2003) Age 18 History of LAVH (12/10/14) With bilateral salpingectomy. Dx: Chronic pelvic pain, Irregular bleeding, Dysmenorrhea. Path negative. History of bilateral tubal ligation (04/09/13) . Performed by Dr. Lan at [facility]. Family History Grandfather Heart disease Social History Smoking and tobacco/nicotine status: never used tobacco/nicotine Second hand smoke exposure: No Alcohol intake: current Alcohol intake frequency: few times a month Substance/Drug Use: never Physical Exam 2 Narrative: EXAM NARRATIVE: General: Alert, no acute distress. Skin: Warm, dry. Head: Normocephalic, atraumatic. Neck: Supple, trachea midline. Eye: Extraocular movements are intact. Ears, nose, mouth and throat: mucosa moist. Cardiovascular: Regular, Normal peripheral perfusion. Respiratory: Lungs are clear to auscultation, respirations are non-labored, breath sounds are equal, Symmetrical chest wall expansion. Gastrointestinal: Soft, severe right lower quadrant tenderness to palpation, Non distended Musculoskeletal: Normal ROM, no deformity. Neurological: Alert and oriented, No focal neurological deficit observed. Psychiatric: Cooperative, appropriate mood & affect. Course 2 Vital Signs: Vital signs: Vital Signs Temperature 98.7 F 11/13/24 23:39 Pulse Rate 73 11/14/24 02:40 Respiratory Rate 17 11/14/24 02:40 Blood Pressure 136/43 11/14/24 02:40 Pulse Oximetry 97 11/14/24 02:40 Oxygen Delivery Me thod Room Air 11/14/24 02:40 MDM - Abdominal Pain Medical Decision Making Medical decision making: Differential diagnosis for this patient with right lower quadrant abdominal pain including but not limited to and based on the above HPI, review of systems and physical exam: Ureterolithiasis. Urinary tract infection. Appendicitis. colitis. small bowel obstruction. Crohn's flare. Pancreatitis. Cholelithiasis or cholecystitis. Hepatitis. Diverticulitis. Constipation. ovarian cyst. ovarian torsion Workup: Orders were placed to evaluate differential diagnosis based on the above differential, HPI and exam: Pelvic ultrasound done to rule out Ovarian torsion. This was negative. This was reviewed and interpreted by myself the emergency room physician. I also reviewed the radiology report. Lab Review: Laboratory results were reviewed and interpreted by myself the emergency room physician. No leukocytosis. No anemia. No renal failure. Urinalysis is positive for whites and red cells. 3+ bacteria. CT of the abdomen pelvis shows a right renal obstructive uropathy secondary to a small distal ureteral stone. This was reviewed and interpreted by myself the emergency room physician. I also reviewed the radiology report. I reviewed the patient's medical record Reexamination: Patient did not respond well to Toradol but Dilaudid did help her pain. No increased work of breathing. Assessment and plan: Kidney stone Urinary tract infection ? Fluids, IV Zofran, IV Toradol, IV Dilaudid and IV Rocephin - Discharged home - Discussed plan with patient. Answered any questions. - Evaluation and treatment of this problem were appropriate in the emergency setting. Lab Data 11/13/24 23:46 11/13/24 00:00 Labs/Radiology: Radiology Impressions Abdomen/Pelvis CT 11/14/24 00:37 IMPRESSION: Right renal obstructive uropathy changes secondary to small distal ureterolithiasis. Pelvis Ultrasound 11/14/24 00:37 IMPRESSION: Normal duplex of the ovaries. No evidence of ovarian torsion. IMPRESSION: 1. No acute findings. 2. Negative for ovarian torsion. Laboratory Results WBC 6.22 10^3/uL (3.29-11.43) 11/13/24 23:46 RBC 4.47 10^6/uL (3.85-5.65) 11/13/24 23:46 Hgb 13.20 g/dL (11.27-16.99) 11/13/24 23:46 Hct 39.8 % (36-47) 11/13/24 23:46 MCV 89.0 fl (85-98) 11/13/24 23:46 MCH 29.5 pg (27-33) 11/13/24 23:46 MCHC 33.2 g/dL (30-55) 11/13/24 23:46 RDW 11.8 % (12.1-15.1) L 11/13/24 23:46 Plt Count 296 10^3/cmm (157-399) 11/13/24 23:46 MPV 9.8 fL (7.4-10.4) 11/13/24 23:46 Neut % (Auto) 38.3 % 11/13/24 23:46 Lymph % (Auto) 48.4 % 11/13/24 23:46 [place] % (Auto) 9.3 % 11/13/24 23:46 Eos % (Auto) 3.2 % 11/13/24 23:46 Baso % (Auto) 0.6 % 11/13/24 23:46 Neut # (Auto) 2.38 10^3/uL (1.8-7.7) 11/13/24 23:46 Lymph # (Auto) 3.0 10^3/uL (0.8-4.8) 11/13/24 23:46 [place] # (Auto) 0.6 10^3/uL (0.2-0.9) 11/13/24 23:46 Eos # (Auto) 0.2 10^3/uL (0.0-0.8) 11/13/24 23:46 Baso # (Auto) 0.0 10^3/uL (0.0-0.1) 11/13/24 23:46 Nucleated RBC % (auto) 0 % 11/13/24 23:46 Nucleated RBCs # 0.0 /100WBC 11/13/24 23:46 Sodium 141 mmol/L (136-145) 11/13/24 00:00 Potassium 3.7 mmol/L (3.5-5.1) 11/13/24 00:00 Chloride 106 mmol/L (98-107) 11/13/24 00:00 Carbon Dioxide 24 mmol/L (22-29) 11/13/24 00:00 Anion Gap 14.7 (5-19) 11/13/24 00:00 BUN 13 mg/dL (6-20) 11/13/24 00:00 Creatinine 1.0 mg/dL (0.5-0.9) H 11/13/24 00:00 GFR Calculation 62.4 mL/min (90-130) L 11/13/24 00:00 Glucose 108 mg/dL (65-115) 11/13/24 00:00 Calculated Osmolality 293 mOsm/kg (285-295) 11/13/24 00:00 Calcium 9.0 mg/dL (8.5-10.5) 11/13/24 00:00 Total Bilirubin 0.2 mg/dL (0.15-1.2) 11/13/24 00:00 AST 20 U/L (0-32) 11/13/24 00:00 ALT 15 U/L (0-33) 11/13/24 00:00 Alkaline Phosphatase 95 U/L (35-105) 11/13/24 00:00 Total Protein 6.9 g/dL (6.6-8.7) 11/13/24 00:00 Albumin 4.3 g/dL (3.5-5.2) 11/13/24 00:00 Globulin 2.6 g/dL (1.3-4.6) 11/13/24 00:00 Lipase 52 U/L (13-60) 11/13/24 00:00 Urine Color Yellow (Yellow) 11/14/24 00:01 Urine Appearance Cloudy (CLEAR) A 11/14/24 00:01 Urine pH 7.0 (5-7) 11/14/24 00:01 Ur Specific [place] 1.028 (1.005-1.030) 11/14/24 00:01 Urine Protein 1+ (Negative) A 11/14/24 00:01 Urine Glucose (UA) Negative (Normal) 11/14/24 00:01 Urine Ketones Trace (Negative) 11/14/24 00:01 Urine Blood Negative (Negative) 11/14/24 00: Urine Nitrate Negative (Negative) 11/14/24 00:01 Urine Bilirubin Negative (Negative) 11/14/24 00:01 Urine Urobilinogen 1.0 mg/dL (Negative) 11/14/24 00:01 Ur Leukocyte Esterase Negative (Negative) 11/14/24 00:01 Urine RBC 6-10 /hpf (0-2) 11/14/24 00:01 Urine WBC 6-10 /hpf (0-5) 11/14/24 00:01 Ur Squamous Epith Cells 6-10 /hpf (0-5) 11/14/24 00:01 Amorphous Sediment Not Reportable 11/14/24 00:01 Urine Bacteria 3+ /hpf (NONE) H 11/14/24 00:01 Hyaline Casts 0.81 /lpf 11/14/24 00:01 All radiology interpretation(s) finalized by discharge Discharge Plan Discharge Patient Disposition: Home Clinical Impression: Ureterolithiasis Condition: Stable Prescriptions: New hydrocodone-acetaminophen 5-325 mg tablet 1 tab PO Q6H PRN (Reason: pain) Qty: 20 0RF tamsulosin [Flomax] 0.4 mg capsule 0.4 mg PO DAILY Qty: 30 0RF cephalexin 500 mg tablet 500 mg PO TID 7 Days Qty: 21 0RF ondansetron 4 mg tablet,disintegrating 4 mg PO Q8H PRN (Reason: nausea and vomiting) Qty: 10 0RF No Action Aimovig Autoinjector 140 mg/mL auto-injector 140 mg SUBCUT Q30D Tylenol Extra Strength 500 mg Tablet 1,000 mg PO PRN ibuprofen 200 mg Tablet 800 mg PO PRN prednisone 50 mg tablet 50 mg PO DAILY Qty: 5 0RF hydrocodone-acetaminophen 5-325 mg tablet 1 tab PO Q8H PRN (Reason: pain) Qty: 7 0RF ondansetron 4 mg tablet,disintegrating 4 mg PO Q6H PRN (Reason: nausea and vomiting) Qty: 14 0RF ondansetron 4 mg tablet,disintegrating 4 mg PO Q8H PRN (Reason: nausea and vomiting) Qty: 15 0RF Reglan 10 mg tablet 10 mg PO TID PRN (Reason: nausea and vomiting) Qty: 20 0RF Rx Instructions: may use instead of zofran oxycodone 5 mg tablet 5 mg PO Q4H PRN (Reason: pain) Qty: 20 0RF amoxicillin-pot clavulanate 875-125 mg tablet 1 tab PO BID Qty: 20 0RF ondansetron 4 mg tablet,disintegrating 4 mg PO Q6H PRN (Reason: nausea and vomiting) Qty: 14 0RF Discharge Orders: Discharge ED (Routine); Ordered 11/14/24 Ordered By: Kadie Meza Referrals: Santiago Gonzalez [Referring, Urology] Referral Note: Please call for follow-up appointment with urology. Either Dr. Gonzalez or the urologist of your choosing. Araseli Ramirez FNP [Primary Care Provider] Discharge Diet: Advance as tolerated Discharge Activity: Increase activity as tolerated Patient Instructions: Kidney Stones (ED), Opioid Safety, Pain Management Activity Restrictions/Additional Instructions: Call for appointment with urology. If fever (temp >100.4) develops return to the emergency room immediately, as this is an emergency. Take nausea medication prior to taking pain medications. Thank you for choosing [facility] for your healthcare needs today. You have been screened and evaluated and felt safe for discharge. Health conditions do change or evolve sometimes and as such it is important that you follow up with your Primary Doctor to be re checked, 3-5 days is a general good time frame for follow up. You are always welcome to return to the ED for re assessment if your symptoms are worsening or you have new concerns Print Language: British Coding Level of Care Code ED Aircraft Rigging And Controls Mechanic for Tomas Valdez
[2024-11-14] MEDS: iohexol 350 mg/mL 500 mL Btl (per mL) IV (01:58)
[2024-11-14] MEDS: HYDROmorphone 0.5 MG/0.5 ML INJ 1 MG IVP (02:37)
[2024-11-14 02:40] VITALS: BP 136/43; PULSE 73; RESP 17; O2SAT 97
[2024-11-14] MEDS: cefTRIAXone 1,000 mg SDV 1000 MG IVP (03:30)
[2024-11-14] MEDS: HYDROcodone-acetaminophen 5-325 mg Tablet 2 TAB PO (03:30)
[2024-11-14] MEDS: ondansetron hcl ODT 4 mg Tab 8 MG PO (03:31)
[2024-11-14 03:39] VITALS: BP 117/75; PULSE 88; O2SAT 95
--- NOTE | 2024-11-14 03:42 | PC.NURSE ---
Hydrocodone was sent home with patient, as well as kym.
== END 2024-11-14 03:43 | disposition home or self-care (01) ==
PROVIDERS: Emergency Provider Emergency Medicine; PCP Nurse Practitioner Family
DX: N20.1 Calculus of ureter (principal)
CPT/HCPCS: 36415; 74177; 76856; 80053; 81001; 83690; 85025; 96374; 96375; 99285; J0696; J1171; J1885; J2405; J9999; Q0162

== ENCOUNTER 2025-04-01 12:25 | Outpatient (CLI) | payer BC, SELFPAY ==
--- NOTE | 2025-04-01 12:30 | XRR_ITS ---
PROCEDURE INFORMATION: Exam: XR Chest Exam date and time: 04/01/2025 12:35 PM Age: 39 years old Clinical indication: Cough and wheezing; Persistent cough x 6 weeks. PT states she has been through 2 rounds of steriods & nothing seems to help. TECHNIQUE: Imaging protocol: Radiologic exam of the chest. Views: 2 views. COMPARISON: CR XR chest 2V* [id number] 05/29/2022 4:51 PM FINDINGS: Lungs: Mild increased density projecting over the right lung base is likely related to overlying breast tissue. No dense focal consolidation is seen. Pleural spaces: No significant pleural effusion. No pneumothorax. Heart/Mediastinum: Within normal limits. Bones/joints: Intact. Organs: Surgical clips are seen projecting over the right upper quadrant compatible with a prior cholecystectomy. Other findings: None. XR/XR chest 2V* [id number] IMPRESSION: Mild increased density projecting over the right lung base felt to be related to overlying breast tissue. No dense focal consolidation is seen. If the patient's clinical symptoms persist, short-term follow-up may be helpful.
== END 2025-04-01 12:26 | disposition home or self-care (01) ==
PROVIDERS: PCP Nurse Practitioner Family; Visit Provider Nurse Practitioner
DX: R06.2 Wheezing (principal); R91.8 Other nonspecific abnormal finding of lung field
CPT/HCPCS: 71046

== ENCOUNTER 2025-04-15 11:33 | Emergency (ER) | payer BC, SELFPAY ==
--- OUTSIDE RECORDS SUMMARY | 2025-04-15 11:37 | XMS_ITS | Encounter Summary ---
Author Organization [facility] Address [address] [place] [address] Care Team Providers Care Assistant Grocery Store Manager Name Role Phone Shady Galeana MD Primary Care Provider [phone] Encounter Details Date Type Department Care Team (Late st Contact Info) Description 04/07/2025 External Device Data [facility] ABSTRACTION Provider, Abstract NO ADDRESS ON FILE Social History Tobacco Use Types Packs/Day Years Used Date Smoking Tobacco: Never Smokeless Tobacco: Never Alcohol Use Standard Drinks/Week Comments Not Currently 0 (1 standard drink = 0.6 oz pur e alcohol) occasional Feeling Safe Answer Date Recorded Are you in a relationship wi th someone who hurts you emotionally and/or physically? 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
--- OUTSIDE RECORDS SUMMARY | 2025-04-15 11:37 | XMS_ITS | Encounter Summary ---
Author Organization [facility] Address 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
--- OUTSIDE RECORDS SUMMARY | 2025-04-15 11:38 | XMS_ITS | Clinical Summary ---
Author Organization [facility] Address [address] [place] [phone] Care Team Providers Care Parlor Chaperone Name Role Phone Shady Galeana MD Primary Care Provider [phone] Allergies Active Allergy Reactions Criticality Noted Date Comments Betamethasone Shortness of Breath/Wheezing High 12/02/2024 Bupivacaine Shortness of Breath/Wheezing High 12/02/2024 Dexamethasone Sodium Phosphate Anaphylaxis High 11/23/2022 Passed out, difficulty breathing Morphine Headache High 01/31/2018 Propofol Other (See Comments) 09/18/2024 Restless legs Shellfish Derived Anaphylaxis High 11/07/2020 Medications busPIRone (BUSPAR) 10 mg tabletIndicatio ns:Generalized anxiety disorder Take 1 Tablet (10 mg) by mouth 3 times daily. 90 Tablet 3 08/30/19 25 Active galcanezumab-gn lm (Emgality Pen) 120 mg/mL Pen InjectorIndicat ions:Complicate d migraine Inject 1 mL by subcutaneous injection every 30 days. 6 mL 3 09/09/19 25 Active omeprazole (PriLOSEC) 40 mg Capsule, Delayed Release(E.C.)In dications:Chron ic severe stomach ulcer TAKE 1 CAPSULE BY MOUTH EVERY DAY 90 Capsule 3 09/13/19 25 Active ondansetron (ZOFRAN ODT) 4 mg Tablet, Rapid DissolveIndicat ions:Nausea and vomiting, unspecified vomiting type Place 1 Tablet (4 mg) under tongue every 6 hours as needed for Nausea or Nausea/Emesis. Dissolve tablet on top of tongue, then swallow with saliva. 10 Tablet 10/29/19 25 Active HYDROcodone-gabriel taminophen (NORCO) 5-325 mg tabletIndicatio ns:Greater trochanteric pain syndrome of right lower extremity Take 1 Tablet by mouth every 8 hours as needed for Pain, Severe. Max Daily Amount: 3 Tablets 20 Tablet 11/19/19 25 Active traZODone (DESYREL) 50 mg tabletIndicatio ns:Complicated migraine Take 1 Tablet (50 mg) by mouth daily at bedtime. 90 Tablet 1 12/17/19 25 Active topiramate (TOPAMAX) 50 mg tabletIndicatio ns:Complicated migraine Take 1 Tablet (50 mg) by mouth 2 times daily. 180 Tablet 02/27/20 25 Active methylPREDNISol one (MEDROL DOSPACK) 4 mg Tablets, Dose PackIndications :Acute bronchitis, unspecified organism As directed 21 Tablet 03/05/20 Active albuterol sulfate HFA 90 mcg/actuation aerosol inhalerIndicati ons:Acute bronchitis, unspecified organism Take 2 Puffs by inhalation every 4 hours as needed for Shortness of Breath or Wheezing. 8.5 Gram 1 03/05/20 25 Active DULoxetine (CYMBALTA) 30 mg Capsule, Delayed Release(E.C.)In dications:Recur rent major depressive disorder, in partial remission TAKE 1 CAPSULE BY MOUTH EVERY DAY 90 Capsule 1 03/24/20 25 Active DULoxetine (CYMBALTA) 30 mg Capsule, Delayed Release(E.C.)In dications:Recur rent major depressive disorder, in partial remission TAKE 1 CAPSULE BY MOUTH EVERY DAY 90 Capsule 1 09/23/19 25 2024 Discontinued azithromycin (ZITHROMAX) 250 mg tablet Take 2 Tablets (500 mg) by mouth daily for 1 day, THEN 1 Tablet (250 mg) daily for 4 days. 6 Tablet 03/12/20 25 2024 predniSONE (DELTASONE) 10 mg tablet Take 3 Tablets (30 mg) by mouth daily for 3 days, THEN 2 Tablets (20 mg) daily for 3 days, THEN 1 Tablet (10 mg) daily for 3 days. 18 Tablet 03/12/20 25 2024 Active Problems Problem Noted Date Diagnosed Date Total Hysterectomy 06/17/2024 Complicated migraine 03/07/2018 Unspecified constipation 02/05/2013 IBS (irritable bowel syndrome) 02/05/2013 History of labor 02/05/2013 Hair loss 05/29/2012 Menorrhagia 05/29/2012 Resolved Problems Problem Noted Date Diagnosed Date Resolved Date Abdominal pain in , antepartum 02/04/2013 06/17/2024 History of delivery, currently 02/04/2013 06/17/2024 Threatened labor, antepartum 02/04/2013 06/17/2024 Encounters Date Type Department Care Team Description 04/08/2025 External Device Data [facility] ABSTRACTION Provider, Abstract 04/07/2025 External Device Data [facility] ABSTRACTION Provider, Abstract 03/24/2025 External Device Data [facility] ABSTRACTION Provider, Abstract 03/22/[address] [address] Araseli Ramirez, AGUEDA Recurrent major depressive disorder, in partial remission 03/17/2025 External Device Data [facility] ABSTRACTION Provider, Abstract 03/12/2025 Orders Only [address] [phone] Araseli Ramirez, AGUEDA 03/05/2025 9:00 AM CDT Office Visit [address] [address] Araseli Ramirez, GYNECOLOGICAL ASSISTANT Left acute otitis media (Primary Dx); Acute bronchitis, unspecified organism 02/26/2025 Orders Only [address] [address] Araseli Ramirez, GYNECOLOGICAL ASSISTANT Complicated migraine 02/24/2025 External Device Data [facility] ABSTRACTION Provider, Abstract 02/19/2025 9:00 AM CDT Office Visit [address] [address] Araseli Ramirez, AGUEDA Cellulitis of buttock (Primary Dx) 02/17/2025 External Device Data [facility] ABSTRACTION Provider, Abstract 01/27/2025 External Device Data ST[facility] ABSTRACTION Provider, Abstract 01/14/2025 External Device Data ST[facility] ABSTRACTION Provider, Abstract 01/13/2025 7:45 AM CDT Office Visit [facility] [place] [address] [facility] [address] [place] [id number] Sang Srinivasan DO Trochanteric bursitis of right hip (Primary Dx) from Last 3 Months Family History Medical History Relation Name Comments No Known Problems Father Cancer Maternal Grandfather Toribio hawkins No Known Problems Mother Heart Disease Paternal Grandfather Bio gpa Heart Disease Paternal Grandmother Bio gma Relation Name Status Comments Father Maternal Grandfather Toribio hawkins Mother Paternal Grandfather Bio gpa Paternal Grandmother Bio gma Social History Tobacco Use Types Packs/Day Years Used Date Smoking Tobacco: Never Smokeless Tobacco: Never Tobacco Cessation:Counseling Given: Not Answered Alcohol Use Standard Drinks/Week Comments Not Currently 0 (1 standard drink = 0.6 oz pur e alcohol) occasional Feeling Safe Answer Date Recorded Are you in a relationship wi th someone who hurts you emotionally and/or physically? 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 Gender Identity Not on file Sexual Orientation Not on file Last Filed Vital Signs Vital Sign Reading Time Taken Comments Blood Pressure 122/82 03/05/2025 9:03 AM CDT Pulse 110 03/05/2025 9:03 AM CDT Temperature 37 C (98.6 F) 03/05/2025 9:03 AM CDT Respiratory Rate 16 03/05/2025 9:03 AM CDT Oxygen Saturation 98% 03/05/2025 9:03 AM CDT Inhaled Oxygen Concentration - - Weight 76.2 kg (168 lb) 03/05/2025 9:03 AM CDT Height 167.6 cm (5' 6 ) 03/05/2025 9:03 AM CDT Body Mass Index 27.12 03/05/2025 9:03 AM CDT Plan of Treatment Health Maintenance Due Date Last Done Comments Pre-Diabetes and Diabetes Screening 1987 DTAP/TDAP/TD VACCINES (1 - Tdap) 09/20/2006 HEPATITIS B VACCINES (1 of 3 - 19+ 3-dose series) 09/20/2006 HPV VACCINES (1 - 3-dose SCDM series) 09/20/2014 Preventative Visit- Commercial 06/11/2024 INFLUENZA VACCINE (#1) 2025 COVID-19 Vaccine (3 - 2024-26 season) 2025, 10/18/2020 Medical Devices Implanted Type Area Production Lead Device Identifier Shelf Expiration Date Model / Serial / Lot [place] Suture Pivot Nanotack 1.4mm [id number] - [id number] Implanted:Qty: 1 on 01/28/2024 by Vance Benson III, MD at [facility] [place] Right: Hip MEG - ENDOSCOPY [id number] 12/18/2024 [id number] / / [id number] [place] Suture 2.4mm Cinchloc [id number] - [id number] Implanted:Qty: 1 on 01/28/2024 by Vance Benson III, MD at [facility] [place] Right: Hip MEG - ENDOSCOPY [id number] 11/25/2024 [id number] / / [id number] [place] Suture 2.4mm Cinchloc [id number] - [id number] Implanted:Qty: 1 on 01/28/2024 by Vance Benson III, MD at [facility] [place] Right: Hip MEG - ENDOSCOPY [id number] 10/03/2024 [id number] / / [id number] [place] Suture 2.4mm Cinchloc [id number] - [id number] Implanted:Qty: 1 on 01/28/2024 by Vance Benson III, MD at [facility] [place] Right: Hip MEG - ENDOSCOPY [id number] 11/25/2024 [id number] / / [id number] [place] Suture 2.4mm Cinchloc [id number] - [id number] Implanted:Qty: 1 on 01/28/2024 by Vance Benson III, MD at [facility] [place] Right: Hip MEG - ENDOSCOPY [id number] 11/25/2024 [id number] / / [id number] [place] Suture Tape Xbraid S 2-N 39in Wht/Blck [id number] - [id number] Implanted:Qty: 1 on 01/28/2024 by Vance Benson III, MD at [facility] [place] Right: Hip MEG - ENDOSCOPY [id number] 03/10/2028 [id number] / / [id number] [place] Suture Tape Xbraid S 2-N 39in Wht/Blck [id number] - [id number] Implanted:Qty: 1 on 01/28/2024 by Vance Benson III, MD at [facility] [place] Right: Hip MEG - ENDOSCOPY [id number] 03/10/2028 [id number] [id number] / / [id number] Explanted Type Area Production Lead Device Identifier Shelf Expiration Date Model / Serial / Lot [place] Suture 2.4mm Cinchloc [id number] - [id number] Explanted:Qty: 1 on 01/28/2024 by Vance Benson III, MD at [facility] [place] Right: Hip MEG - ENDOSCOPY [id number] 11/25/2024 [id number] / / [id number] Insurance BS BLUE ACCESS/TRUE BLUE PPO BS BLUE ACCESS/TRUE BLUE PPO RX [facility] [employer] Advance Directives For more information, please contact: [phone] * Full Code (Latest Code Status on File) Date Activated Date Inactivated Comments 09/05/2024 10:19 AM 09/05/2024 2:08 PM * Full Code Date Activated Date Inactivated Comments 01/28/2024 12:17 PM 01/28/2024 8:49 PM Care Teams Parlor Chaperone Relationship Specialty Start Date End Date Shady Galeana MD [address] [place] [phone] PCP - General Family Practice 03/19/24
--- OUTSIDE RECORDS SUMMARY | 2025-04-15 11:38 | XMS_ITS | Encounter Summary ---
Author Organization [facility] Address [address] [place] [address] Care Team Providers Care Brick Tender Name Role Phone Shady Galeana MD Primary Care Provider [phone] Encounter Details Date Type Department Care Team (Late st Contact Info) Description 07/02/2024 Results Follow-Up [facility] Medicine [address] [phone] Araseli Ramirez FNP NO ADDRESS ON FILE RESPIRATORY PATHOGEN PCR PANEL Social History Tobacco Use Types Packs/Day Years Used Date Smoking Tobacco: Never Smokeless Tobacco: Never Alcohol Use Standard Drinks/Week Comments Not Currently 0 (1 standard drink = 0.6 oz pur e alcohol) occasional Feeling Safe Answer Date Recorded Are you in a relationship wi th someone who hurts you emotionally and/or physically? 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 Last read by Rolanda Treviño at ??8:34 AM on 07/02/2024. OPERATOR * Result Encounter Note - Araseli Ramirez FNP - 07/02/2024 8:21 AM GATE OPERATOR Negative respiratory panel. OPERATOR documented in this encounter Plan of Treatment Not on file documented as of this encounter Visit Diagnoses Not on filedocumented in this encounter Care Teams Brick Tender Relationship Specialty Start Date End Date Shady Galeana MD [address] [phone] PCP - General Family Practice 03/19/24 documented as of this encounter
[2025-04-15 11:51] VITALS: BP 126/89; PULSE 100; RESP 18; TEMP 36.6; O2SAT 99; BMI 25.0
--- NOTE | 2025-04-15 12:02 | CT_ITS ---
WS: [id number] CT ABDOMEN PELVIS TECHNIQUE: Noncontrast CT of the abdomen and pelvis with coronal and sagittal reformatted images. CLINICAL INFORMATION: flank pain COMPARISON: 11/14/2024 DLP: 566.[address] scans at [facility] use at least one of these dose optimization techniques: automated exposure control; mA and/or kV adjustment per patient size (includes targeted exams where dose is matched to clinical indication); or iterative reconstruction. FINDINGS: Tiny nonobstructive RIGHT calyceal tip calculus. RIGHT ureter is decompressed. No hydronephrosis RIGHT kidney. Multiple pelvic phleboliths about the distal LEFT ureter. No definite obstructing LEFT renal or ureteral calculi. No hydronephrosis LEFT kidney. Normal noncontrast liver and spleen. Small esophageal hernia. Lung bases are well aerated. Adrenal glands are normal. Normal noncontrast pancreas. Small splenule. Normal caliber abdominal aorta. Transverse colon constipation. Normal appendix. Small amount of free fluid in the cul-de-sac. Multi follicular ovaries. Cholecystectomy. Hysterectomy. Grade 1 anterolisthesis L5 on S1. Chronic bilateral pars defects. CT/CT kidney stone [id number] IMPRESSION: 1. No hydronephrosis in either kidney. 2. No obstructing RIGHT renal or ureteral calculi. 3. Several pelvic phleboliths about the distal LEFT ureter probably outside th e ureter. No evidence of left-sided obstruction. 4. Prior cholecystectomy and hysterectomy. 5. Grade 1 anterolisthesis L5 on S1. Chronic bilateral pars defects.
--- NOTE | 2025-04-15 12:03 | W.ED.FEMALGU ---
HPI - Female Genitourinary General: Chief complaint: Urogenital-Female Stated complaint: Lower rigth side pain and trouble urninating Time Seen by Provider: 04/15/25 12:00 History of Present Illness: 39-year-old female with a history of hysterectomy, kidney stones, and migraines who presents emergency room with right flank pain, right lower quadrant pain and increased urinary frequency with some dysuria. She says this feels a lot like when she had a kidney stone before. No fever. She has had some nausea but no vomiting. Related Data Home Medications ?Medication ?Instructions ?Recorded ?Confirmed acetaminophen 500 mg tablet 1,000 mg PO Q6H PRN Pain 08/11/20 04/15/25 (Tylenol Extra Strength) ibuprofen 200 mg tablet 800 mg PO Q6H PRN Pain 08/11/20 04/15/25 omeprazole 40 mg capsule,delayed 40 mg PO QPM 04/07/25 04/15/25 release albuterol sulfate 90 mcg/actuation 2 puff inhalation Q4H PRN 04/15/25 04/15/25 aerosol inhaler Shortness Of Breath duloxetine 30 mg capsule,delayed 30 mg PO QPM 04/15/25 04/15/25 release galcanezumab-gnlm 120 mg/mL 120 mg SUBCUT Q30D 04/15/25 04/15/25 subcutaneous pen injector (Emgality Pen) topiramate 50 mg tablet 100 mg PO QPM 04/15/25 04/15/25 trazodone 50 mg tablet 50 mg PO BEDTIME 04/15/25 04/15/25 Previous Rx's ?Medication ?Instructions ?Recorded ondansetron 4 mg disintegrating 4 mg PO Q8H PRN nausea and 02/25/22 tablet vomiting #15 tabs ipratropium 0.5 mg-albuterol 3 mg 3 ml inhalation QID PRN wheezing 04/01/25 (2.5 mg base)/3 mL nebulization #90 mL soln cefdinir 300 mg capsule 300 mg PO BID 10 days #20 caps 04/15/25 fluconazole 100 mg tablet 100 mg PO DAILY #7 tabs 04/15/25 hydrocodone 5 mg-acetaminophen 325 1 tab PO Q6H PRN pain #20 tabs 04/15/25 mg tablet phenazopyridine 100 mg tablet 100 mg PO Q8H 6 doses #6 tabs 04/15/25 (Pyridium) polyethylene glycol 3350 17 17 g PO DAILY #510 grams 04/15/25 gram/dose oral powder (Miralax) Allergies Allergy/AdvReac Type Severity Reaction Status Date / Time dexamethasone (From Decadron) Allergy blacking Verified 04/07/25 11:11 out morphine Allergy ADR-Migrain Verified 04/07/25 11:11 e propofol Allergy ADR-Muscle Verified 04/07/25 11:11 Pain shellfish derived Allergy ALGY-Difficulty Verified 04/07/25 11:11 Breathing Review of Systems Narrative: Constitutional symptoms: Negative except as documented in HPI. Skin symptoms: Negative except as documented in HPI. Eye symptoms: Negative except as documented in HPI. ENMT symptoms: Negative except as documented in HPI. Respiratory symptoms: Negative except as documented in HPI. Cardiovascular symptoms: Negative except as documented in HPI. Gastrointestinal symptoms: Negative except as documented in HPI. Genitourinary symptoms: Negative except as documented in HPI. Musculoskeletal symptoms: Negative except as documented in HPI. Neurologic symptoms: Negative except as documented in HPI. Psychiatric symptoms: Negative except as documented in HPI. Endocrine symptoms: Negative except as documented in HPI. PFSH ED PFSH: Medical History (Updated 04/15/25 @ 13:35 by Kadie Meza MD) Migraine Without aura Surgical History History of laparoscopy (03/12/12) Dx: Pelvic pain. Performed by Dr. Latif at [facility] History of laparoscopic cholecystectomy (~08/2010) History of tonsillectomy and adenoidectomy (~2003) Age 18 History of LAVH (12/10/14) With bilateral salpingectomy. Dx: Chronic pelvic pain, Irregular bleeding, Dysmenorrhea. Path negative. History of bilateral tubal ligation (04/09/13) . Performed by Dr. Lan at [facility] [place]. Family History Grandfather Heart disease Social History Smoking and tobacco/nicotine status: never used tobacco/nicotine Second hand smoke exposure: No Alcohol intake: current Alcohol intake frequency: few times a month Substance/Drug Use: never Physical Exam Narrative: EXAM NARRATIVE: General: Alert, no acute distress. Skin: Warm, dry. Head: Normocephalic, atraumatic. Neck: Supple, trachea midline. Eye: Extraocular movements are intact. Ears, nose, mouth and throat: mucosa moist. Cardiovascular: Regular, Normal peripheral perfusion. Respiratory: Lungs are clear to auscultation, respirations are non-labored, breath sounds are equal, Symmetrical chest wall expansion. Gastrointestinal: Soft, Nontender, Non distended Musculoskeletal: Normal ROM, no deformity. Neurological: Alert and oriented, No focal neurological deficit observed. Psychiatric: Cooperative, appropriate mood & affect. Course Vital Signs: Vital signs: Vital Signs Temperature 97.8 F 04/15/25 11:51 Pulse Rate 100 04/15/25 11:51 Respiratory Rate 18 04/15/25 11:51 Blood Pressure 126/89 04/15/25 11:51 Pulse Oximetry 100 04/15/25 12:05 Oxygen Delivery Me thod Room Air 04/15/25 12:05 MDM - Female Medical Decision Making Medical decision making: Patient's reason for coming to the emergency room abdominal pain, flank pain, : Urinary frequency Social determinants: Employed and I reviewed the patient's medical record. Was seen recently in family practice for seasonal allergic rhinitis. Has been seen and diagnosed with kidney stones in the past year in the emergency room. I reviewed the patient's current home meds Alternate historians: No need for alternate history. Medical decision making: Differential diagnosis including but not limited to and based on the above HPI, review of systems and physical exam: Differential diagnosis for patient with dysuria / lower abdominal pain: Ureterolithiasis. Urinary tract infection. Cystitis. With the possibility of sepsis, pyelonephritis and renal failure. Orders placed to evaluate differential diagnosis based on the above differential, HPI and physical exam Lab Review: Laboratory results were reviewed and interpreted by myself the emergency room physician. No leukocytosis. No anemia. No renal failure. Patient does have signs of urinary tract infection with 2+ leukocyte esterase 11-20 whites and 1+ bacteria and yeast CT of the abdomen pelvis to rule out kidney stones. No kidney stones. No obstruction. This was reviewed and interpreted by myself the emergency room physician. I also reviewed the radiology report. Assessment of risk: Level of risk: Mild Hospitalization considerations: Patient has some symptoms of pyelonephritis but no overt leukocytosis or lactic acidosis or renal failure so should be okay with outpatient oral antibiotic Reexamination: Patient remained stable. No increased work of breathing. No altered mental status. No focal motor deficits. Assessment and plan: Urinary tract infection Flank pain ? Rocephin, Zofran and Toradol IV. - Discharged home - Discussed plan with patient. Answered any questions. - Evaluation and treatment of this problem were appropriate in the emergency setting. Lab Data 04/15/25 12:09 04/15/25 12:09 Radiology Impressions Abdomen/Pelvis CT 04/15/25 12:02 IMPRESSION: 1. No hydronephrosis in either kidney. 2. No obstructing RIGHT renal or ureteral calculi. 3. Several pelvic phleboliths about the distal LEFT ureter probably outside the ureter. No evidence of left-sided obstruction. 4. Prior cholecystectomy and hysterectomy. 5. Grade 1 anterolisthesis L5 on S1. Chronic bilateral pars defects. Laboratory Results WBC 5.15 10^3/uL (3.29-11.43) 04/15/25 12:09 RBC 4.64 10^6/uL (3.85-5.65) 04/15/25 12:09 Hgb 13.60 g/dL (11.27-16.99) 04/15/25 12:09 Hct 41.2 % (36-47) 04/15/25 12:09 MCV 88.8 fl (85-98) 04/15/25 12:09 MCH 29.3 pg (27-33) 04/15/25 12:09 MCHC 33.0 g/dL (30-55) 04/15/25 12:09 RDW 13.1 % (12.1-15.1) 04/15/25 12:09 Plt Count 219 10^3/cmm (157-399) 04/15/25 12:09 MPV 10.4 fL (7.4-10.4) 04/15/25 12:09 Neut % (Auto) 55.5 % 04/15/25 12:09 Lymph % (Auto) 30.3 % 04/15/25 12:09 [place] % (Auto) 11.8 % 04/15/25 12:09 Eos % (Auto) 1.6 % 04/15/25 12:09 Baso % (Auto) 0.6 % 04/15/25 12:09 Neut # (Auto) 2.86 10^3/uL (1.8-7.7) 04/15/25 12:09 Lymph # (Auto) 1.6 10^3/uL (0.8-4.8) 04/15/25 12:09 [place] # (Auto) 0.6 10^3/uL (0.2-0.9) 04/15/25 12:09 Eos # (Auto) 0.1 10^3/uL (0.0-0.8) 04/15/25 12:09 Baso # (Auto) 0.0 10^3/uL (0.0-0.1) 04/15/25 12:09 Nucleated RBC % (auto) 0 % 04/15/25 12:09 Nucleated RBCs # 0.0 /100WBC 04/15/25 12:09 Sodium 137 mmol/L (136-145) 04/15/25 12:09 Potassium 3.6 mmol/L (3.5-5.1) 04/15/25 12:09 Chloride 107 mmol/L (98-107) 04/15/25 12:09 Carbon Dioxide 20 mmol/L (22-29) L 04/15/25 12:09 Anion Gap 13.6 (5-19) 04/15/25 12:09 BUN 9 mg/dL (6-20) 04/15/25 12:09 Creatinine 0.9 mg/dL (0.5-0.9) 04/15/25 12:09 GFR Calculation 70.5 mL/min (90-130) L 04/15/25 12:09 Glucose 72 mg/dL (65-115) 04/15/25 12:09 Calculated Osmolality 281 mOsm/kg (285-295) L 04/15/25 12:09 Lactic Acid 0.7 mmol/L (0.5-2.2) 04/15/25 12:09 Calcium 8.5 mg/dL (8.5-10.5) 04/15/25 12:09 Total Bilirubin 0.3 mg/dL (0.15-1.2) 04/15/25 12:09 AST 16 U/L (0-32) 04/15/25 12:09 ALT 14 U/L (0-33) 04/15/25 12:09 Alkaline Phosphatase 59 U/L (35-105) 04/15/25 12:09 C-Reactive Protein 3.0 mg/L (0.0-4.9) 04/15/25 12:09 Total Protein 6.1 g/dL (6.6-8.7) L 04/15/25 12:09 Albumin 4.1 g/dL (3.5-5.2) 04/15/25 12:09 Globulin 2.0 g/dL (1.3-4.6) 04/15/25 12:09 Urine Color Yellow (Yellow) 04/15/25 11:40 Urine Appearance Clear (CLEAR) 04/15/25 11:40 Urine pH 6.0 (5-7) 04/15/25 11:40 Ur Specific [place] 1.025 (1.005-1.030) 04/15/25 11:40 Urine Protein Trace (Negative) A 04/15/25 11:40 Urine Glucose (UA) Negative (Normal) 04/15/25 11:40 Urine Ketones Negative (Negative) 04/15/25 11:40 Urine Blood Negative (Negative) 04/15/25 11:40 Urine Nitrate Negative (Negative) 04/15/25 11:40 Urine Bilirubin Negative (Negative) 04/15/25 11:40 Urine Urobilinogen 1.0 mg/dL (Negative) 04/15/25 11:40 Ur Leukocyte Esterase 2+ (Negative) A 04/15/25 11:40 Urine RBC 11-20 /hpf (0-2) H 04/15/25 11:40 Urine WBC 11-20 /hpf (0-5) H 04/15/25 11:40 Ur Squamous Epith Cells 11-20 /hpf (0-5) H 04/15/25 11:40 Amorphous Sediment Not Reportable 04/15/25 11:40 Urine Bacteria None seen /hpf (NONE) 04/15/25 11:40 Hyaline Casts 1.21 /lpf 04/15/25 11:40 Urine Yeast 1+ /hpf H 04/15/25 11:40 All radiology interpretation(s) finalized by discharge Discharge Plan Discharge Patient Disposition: Home Clinical Impression: Urinary tract infection Condition: Stable Prescriptions: New hydrocodone-acetaminophen 5-325 mg tablet 1 tab PO Q6H PRN (Reason: pain) Qty: 20 0RF polyethylene glycol 3350 [Miralax] 17 gram/dose powder 17 g PO DAILY Qty: 510 0RF Rx Instructions: Take 1 scoop daily while taking pain medications. cefdinir 300 mg capsule 300 mg PO BID 10 Days Qty: 20 0RF phenazopyridine [Pyridium] 100 mg tablet 100 mg PO Q8H Qty: 6 0RF fluconazole 100 mg tablet 100 mg PO DAILY Qty: 7 0RF No Action ipratropium-albuterol 0.5 mg-3 mg(2.5 mg base)/3 mL solution for nebulization 3 ml inhalation QID PRN (Reason: wheezing) Qty: 90 0RF omeprazole 40 mg capsule,delayed release(DR/EC) 40 mg PO QPM acetaminophen [Tylenol Extra Strength] 500 mg Tablet 1,000 mg PO Q6H PRN (Reason: Pain) ibuprofen 200 mg Tablet 800 mg PO Q6H PRN (Reason: Pain) ondansetron 4 mg tablet,disintegrating 4 mg PO Q8H PRN (Reason: nausea and vomiting) Qty: 15 0RF duloxetine 30 mg capsule,delayed release(DR/EC) 30 mg PO QPM trazodone 50 mg tablet 50 mg PO BEDTIME albuterol sulfate 90 mcg/actuation HFA aerosol inhaler 2 puff INHALATION Q4H PRN (Reason: Shortness Of Breath) topiramate 50 mg tablet 100 mg PO QPM Emgality Pen 120 mg/mL pen injector 120 mg SUBCUT Q30D Discharge Orders: Discharge ED (Routine); Ordered 04/15/25 Ordered By: Kadie Meza Discharge Diet: Usual diet Discharge Activity: Increase activity as tolerated Patient Instructions: Urinary Tract Infection in Women (ED), Opioid Safety, Pain Management, Patient Portal & Lalita Instructions Activity Restrictions/Additional Instructions: Thank you for choosing [facility] for your healthcare needs today. You have been screened and evaluated and felt safe for discharge. Health conditions do change or evolve sometimes and as such it is important that you follow up with your Primary Doctor to be re checked, 3-5 days is a general good time frame for follow up. You are always welcome to return to the ED for re assessment if your symptoms are worsening or you have new concerns Print Language: Turkmen Coding Level of Care Code ED Behavior Management Specialist for Tomas Valdez
[2025-04-15 12:05] VITALS: O2SAT 100
[2025-04-15] MEDS: ondansetron 2 mg/ML SDV 2 mL 4 MG IVP (12:19)
[2025-04-15 12:21] LABS: Hematocrit 41.2 % (36-47); Hemoglobin 13.60 g/dL (11.27-16.99); Mean Corpuscular HGB Conc 33.0 g/dL (30-55); Mean Corpuscular Hemoglobin 29.3 pg (27-33); Mean Corpuscular Volume 88.8 fl (85-98); Nucleated Red Blood Cells % 0 %; Platelet Count 219 10^3/cmm (157-399); Red Blood Count 4.64 10^6/uL (3.85-5.65); White Blood Count 5.15 10^3/uL (3.29-11.43)
[2025-04-15 12:27] LABS: Glucose Urine UA Negative (Normal); Nitrate Urine Negative (Negative); Specific Gravity, Urine 1.025 (1.005-1.030)
[2025-04-15 12:37] LABS: Lactic Sepsis W/Reflex 0.7 mmol/L (0.5-2.2)
[2025-04-15 12:38] LABS: Alanine Aminotransferase 14 U/L (0-33); Albumin Level 4.1 g/dL (3.5-5.2); Alkaline Phosphatase 59 U/L (35-105); Anion Gap 13.6 (5-19); Aspartate Amino Transferase 16 U/L (0-32); Blood Urea Nitrogen 9 mg/dL (6-20); Calcium 8.5 mg/dL (8.5-10.5); Carbon Dioxide 20 mmol/L (22-29); Chloride 107 mmol/L (98-107); Creatinine Clr Calc Pharmacy 86.0676; Globulin 2.0 g/dL (1.3-4.6); Glucose 72 mg/dL (65-115); Osmolality Calculated 281 mOsm/kg (285-295); Potassium 3.6 mmol/L (3.5-5.1); Sodium 137 mmol/L (136-145); Total Protein 6.1 g/dL (6.6-8.7)
[2025-04-15 12:59] LABS: UA Slide Review UA Slide Review Perf
[2025-04-15 14:13] VITALS: BP 104/72; PULSE 97; O2SAT 100
[2025-04-15] MEDS: cefTRIAXone 1,000 mg SDV 1000 MG IVP (14:20)
== END 2025-04-15 14:30 | disposition home or self-care (01) ==
PROVIDERS: Emergency Provider Emergency Medicine
DX: N39.0 Urinary tract infection, site not specified (principal)
CPT/HCPCS: 36415; 74176; 80053; 81001; 83605; 85025; 86140; 87040; 96374; 96375; 99285; J0696; J1885; J2405